=== PATIENT | male | born 1950 | race Caucasian/White ===

== ENCOUNTER 2017-04-05 10:47 | Inpatient (IN) | payer OTHER, MEDICARE ==
[~2017-04-05] VITALS: Ht 177.8 cm; Wt 88.1 kg
[2017-04-05] VITALS (11 sets, daily range): BP systolic 135–213; BP diastolic 63–101; PULSE 69–126; RESP 18–24; TEMP 96.3–101.6; O2SAT 90–99
[~2017-04-05 10:47] MED LIST: ALBU8I INH; CLON.1 PO; COLA100C PO; DILT180C56 PO; FOLI1 PO; GLUCTAB PO; GLYB5TAB3 PO; HYDR-3580 PO; IPRA17I INH; LEVEMIR SQ; MEDR4PAK3 PO; NOVOLOGP2 SQ; NOVOLOGSS SQ; OXYC-360 PO; PREG300 PO; RIVA10 PO; THIA100T PO; XANA0.5T PO; Z.0.WALKERPLAT
--- NOTE | 2017-04-05 11:03 | PD ---
HPI . cough for long time and generalized weakness Chief Complaint: Fever Time Seen by Provider: 11:01 Travel History International Travel<30 days: No Contact w/Intl Traveler<30days: No Traveled to known affect area: No History of Present Illness HPI 66-year-old male who is a very poor historian with history of COPD and diabetes here with complaints of coughing intermittently for the past several weeks, possibly months and generalized weakness. Apparently patient lives at home with his , who is having a difficult time taking care of him. He sustained a hip fracture several months ago was in rehabilitation for a short period of time, and then released home. Apparently he was brought in today due to generalized weakness, frequent coughing and temperature elevation of 101.4. He tells me he is a patient of the [facility], but does not know the name of his medical doctor. He also does not recall any of the names of the medications that he takes daily. Unfortunately his is not present to provide any of that information. PFSH Past Medical History Arthritis: Yes Asthma: Yes Autoimmune Disease: No Blood Disorders: No Anxiety: Yes Depression: No Heart Rhythm Problems: No Cancer: No Cardiovascular Problems: Yes High Cholesterol: No Chest Pain: No Congestive Heart Failure: No Cirrhosis: Yes COPD: Yes Cerebrovascular Accident: No Diabetes: Yes Diminished Hearing: No Endocrine: Yes Gastrointestinal Disorders: Yes GERD: No Glaucoma: No Genitourinary: Yes Headaches: No Hepatitis: No Hiatal Hernia: No Hypertension: Yes Immune Disorder: No Kidney Stones: Yes Musculoskeletal: Yes Neurologic: Yes (NEUROPATHY) Psychiatric: No Reproductive: No Respiratory: Yes (COPD) Migraines: No Myocardial Infarction: No Pancreatitis: Yes Renal Failure: No Seizures: No Sickle Cell Disease: No Sleep Apnea: No Thyroid Disease: No Ulcer: No Past Surgical History Abdominal Surgery: Yes (GALL BLADDER) AICD: No Appendectomy: No Arteriovenous Shunt: No Cardiac Surgery: No Cholecystectomy: Yes Ear Surgery: No Endocrine Surgery: No Eye Surgery: No Genitourinary Surgery: Yes Gynecologic Surgery: No Insulin Pump: No Joint Replacement: No Oral Surgery: No Thoracic Surgery: No Other Surgery: Yes (CYST REMOVED FROM HEAD AND NECK) Social History Alcohol Use: Yes (BEER DAILY "UP TO 8") Tobacco Use: Yes (2 PPD) Substance Use: No Allergies-Medications (Allergen,Severity, Reaction): Coded Allergies: Codeine (Verified Allergy, Severe, SEVERE GI UPSET, 04/05/17) Reported Meds & Prescriptions Reported Meds & Active Scripts Active Reported Gabapentin 800 Mg Tab 800 Mg PO QID Amitriptyline (Amitriptyline HCl) 10 Mg Tab 10 Mg PO HS Lortab (Hydrocodone-Acetaminophen) 7.5-325 Mg Tab 1 Tab PO TID PRN Glipizide-Metformin 5-500 Mg Tab 1 Tab PO DAILY WITH LUNCH Lyrica (Pregabalin) 75 Mg Cap 75 Mg PO BID Review of Systems General / Constitutional: Positive: Fever Eyes: No: Visual changes HENT: No: Headaches Cardiovascular: No: Chest Pain or Discomfort Respiratory: Positive: Cough, No: Shortness of Breath Gastrointestinal: No: Abdominal Pain Genitourinary: No: Dysuria Musculoskeletal: No: Pain Skin: No Rash Neurologic: Positive: Weakness Psychiatric: No: Depression Endocrine: No: Polydipsia Hematologic/Lymphatic: No: Easy Bruising Physical Exam Narrative GENERAL: Disheveled appearance SKIN: Warm and dry. No visible rashes or bruising. Nailbeds extremely dirty with what appears to be feces HEAD: Normocephalic and atraumatic. EYES: No scleral icterus. No injection or drainage. ENT: No nasal drainage noted. Mucous membranes pink. Airway patent. NECK: Supple, trachea midline. No JVD. CARDIOVASCULAR: tachycardic on examination, 122 RESPIRATORY: breath sounds diminished bilaterally, rhonchi scattered throughout , GASTROINTESTINAL: Abdomen soft, non-tender, nondistended. no rebound or guarding EXTREMITIES: No cyanosis, mild pedal edema, posterior tibial pulses normal BACK: No obvious deformity. NEURO: CN II-12 intact, funeral director/embalmer/owner strength normal b/l, UE and LE 5/5, no focal deficits PSYCH: AAO x 3, normal affect. Data Data Last Documented VS Vital Signs Date Time Temp Pulse Resp B/P Pulse Ox O2 Delivery O2 Flow Rate FiO2 04/05/17 14:23 98.8 85 18 149/68 90 Room Air 04/05/17 12:12 2 04/05/17 11:20 21 Orders Electrocardiogram (04/05/17 ) Complete Blood Count With Diff (04/05/17 11:09) Comprehensive Metabolic Panel (04/05/17 11:09) Prothrombin Time / Inr (Pt) (04/05/17 11:09) Act Partial Throm Time (Ptt) (04/05/17 11:09) Lactic Acid Sepsis Protocol (04/05/17 11:09) Urinalysis - C+S If Indicated (04/05/17 11:09) Blood Culture (04/05/17 11:09) Chest, Single Ap (04/05/17 11:09) Blood Glucose (04/05/17 11:09) Ecg Monitoring (04/05/17 11:09) Iv Access Insert/Monitor (04/05/17 11:09) Oximetry (04/05/17 11:09) Oxygen Administration (04/05/17 11:09) Albuterol-Ipratropium Neb (Duoneb Neb) (04/05/17 11:15) Acetaminophen (Tylenol) (04/05/17 12:30) Sodium Chlor 0.9% 1000 Ml Inj (Ns 1000 M (04/05/17 13:30) ^ Straight Catheter (04/05/17 13:28) Influenzae A/B Antigen (04/05/17 13:29) Alcohol Withdrawal Asmt-Ciwa ONCE (04/05/17 13:32) Flumazenil Inj (Romazicon Inj) (04/05/17 13:45) Lorazepam (Ativan) (04/05/17 13:45) Lorazepam Inj (Ativan Inj) (04/05/17 13:45) Lorazepam (Ativan) (04/05/17 13:45) Lorazepam Inj (Ativan Inj) (04/05/17 13:45) Lorazepam Inj (Ativan Inj) (04/05/17 13:45) Lorazepam Inj (Ativan Inj) (04/05/17 13:45) Alcohol (Ethanol) (04/05/17 13:55) Urine Culture (04/05/17 13:45) Ceftriaxone Inj (Rocephin Inj) (04/05/17 14:30) Sodium Chlor 0.9% 1000 Ml Inj (Ns 1000 M (04/05/17 14:30) Labs Laboratory Tests Test 04/05/17 04/05/17 04/05/17 04/05/17 11:09 11:15 13:40 13:45 White Blood Count 8.8 TH/MM3 Red Blood Count 4.00 MIL/MM3 Hemoglobin 12.9 GM/DL Hematocrit 37.6 % Mean Corpuscular Volume 94.0 FL Mean Corpuscular Hemoglobin 32.3 PG Mean Corpuscular Hemoglobin 34.4 % Concent Red Cell Distribution Width 13.6 % Platelet Count 229 TH/MM3 Mean Platelet Volume 8.0 FL Neutrophils (%) (Auto) 81.5 % Lymphocytes (%) (Auto) 8.7 % Monocytes (%) (Auto) 9.1 % Eosinophils (%) (Auto) 0.1 % Basophils (%) (Auto) 0.6 % Neutrophils # (Auto) 7.2 TH/MM3 Lymphocytes # (Auto) 0.8 TH/MM3 Monocytes # (Auto) 0.8 TH/MM3 Eosinophils # (Auto) 0.0 TH/MM3 Basophils # (Auto) 0.1 TH/MM3 CBC Comment DIFF FINAL Differential Comment Prothrombin Time 10.7 SEC Prothromb Time International 1.0 RATIO Ratio Activated Partial 25.0 SEC Thromboplast Time Sodium Level 133 MEQ/L Potassium Level 4.8 MEQ/L Chloride Level 97 MEQ/L Carbon Dioxide Level 23.7 MEQ/L Anion Gap 12 MEQ/L Blood Urea Nitrogen 12 MG/DL Creatinine 1.09 MG/DL Estimat Glomerular Filtration 67 ML/MIN Rate Random Glucose 213 MG/DL Calcium Level 9.0 MG/DL Total Bilirubin 0.8 MG/DL Aspartate Amino Transf 40 U/L (AST/SGOT) Alanine Aminotransferase 17 U/L (ALT/SGPT) Alkaline Phosphatase 86 U/L Total Protein 7.9 GM/DL Albumin 2.5 GM/DL Lactic Acid Level 3.5 mmol/L 2.1 mmol/L Ethyl Alcohol Level LESS THAN 3 MG/DL Urine Color YELLOW Urine Turbidity CLOUDY Urine pH 6.0 Urine Specific [place] 1.018 Urine Protein 300 mg/dL Urine Glucose (UA) 300 mg/dL Urine Ketones 10 mg/dL Urine Occult Blood MOD Urine Nitrite NEG Urine Bilirubin NEG Urine Urobilinogen LESS THAN 2.0 MG/DL Urine Leukocyte Esterase LARGE Urine RBC 20 /hpf Urine WBC 142 /hpf Urine Amorphous Sediment OCC Urine Bacteria MANY /hpf Microscopic Urinalysis Comment CATH-CULTURE IND MDM Medical Decision Making Medical Screen Exam Complete: Yes Emergency Medical Condition: Yes Medical Record Reviewed: Yes Differential Diagnosis pneumonia, copd exacerabation, UTI, sepsis Narrative Course 66 yr old male here with generalized weakness, coughing and fever. Patient appears to have an acute infection possible Pneumonia. He may also have sepsis as he is febrile and tachycardic. IV access obtained. Patient placed on continuous cardiac monitoring, as well as O2 monitoring. He required 2L O2 via NC as he was satting at 90% on RA. Labs, cxr, EKG ordered. EKG reviewed by Dr. Hartmann. Duoneb provided. Patient given Tylenol for fever. Laboratory Tests Test 04/05/17 04/05/17 11:09 11:15 White Blood Count 8.8 TH/MM3 Red Blood Count 4.00 MIL/MM3 Hemoglobin 12.9 GM/DL Hematocrit 37.6 % Mean Corpuscular Volume 94.0 FL Mean Corpuscular Hemoglobin 32.3 PG Mean Corpuscular Hemoglobin 34.4 % Concent Red Cell Distribution Width 13.6 % Platelet Count 229 TH/MM3 Mean Platelet Volume 8.0 FL Neutrophils (%) (Auto) 81.5 % Lymphocytes (%) (Auto) 8.7 % Monocytes (%) (Auto) 9.1 % Eosinophils (%) (Auto) 0.1 % Basophils (%) (Auto) 0.6 % Neutrophils # (Auto) 7.2 TH/MM3 Lymphocytes # (Auto) 0.8 TH/MM3 Monocytes # (Auto) 0.8 TH/MM3 Eosinophils # (Auto) 0.0 TH/MM3 Basophils # (Auto) 0.1 TH/MM3 CBC Comment DIFF FINAL Differential Comment Prothrombin Time 10.7 SEC Prothromb Time International 1.0 RATIO Ratio Activated Partial 25.0 SEC Thromboplast Time Sodium Level 133 MEQ/L Potassium Level 4.8 MEQ/L Chloride Level 97 MEQ/L Carbon Dioxide Level 23.7 MEQ/L Anion Gap 12 MEQ/L Blood Urea Nitrogen 12 MG/DL Creatinine 1.09 MG/DL Estimat Glomerular Filtration 67 ML/MIN Rate Random Glucose 213 MG/DL Calcium Level 9.0 MG/DL Total Bilirubin 0.8 MG/DL Aspartate Amino Transf 40 U/L (AST/SGOT) Alanine Aminotransferase 17 U/L (ALT/SGPT) Alkaline Phosphatase 86 U/L Total Protein 7.9 GM/DL Albumin 2.5 GM/DL Lactic Acid Level 3.5 mmol/L Lactic acid: hemolysis: recollect requested 1331: Sample was sufficient: waiting on urine. Influenza requested. Patient supposedly drinks a moderate amount of ETOH. I will place him on CIWA precautions. Alcohol level checked. Discussed with Dr. Hartmann, we will hold off on antibiotics until urine is back. Laboratory Tests Test 04/05/17 04/05/17 04/05/17 04/05/17 11:09 11:15 13:40 13:45 Red Blood Count 4.00 MIL/MM3 (4.50-5.90) Hemoglobin 12.9 GM/DL (13.0-17.0) Hematocrit 37.6 % (39.0-51.0) Neutrophils (%) (Auto) 81.5 % (16.0-70.0) Lymphocytes (%) (Auto) 8.7 % (9.0-44.0) Monocytes (%) (Auto) 9.1 % (0.0-8.0) Lymphocytes # (Auto) 0.8 TH/MM3 (1.0-4.8) Sodium Level 133 MEQ/L (136-145) Chloride Level 97 MEQ/L (98-107) Estimat Glomerular Filtration 67 ML/MIN (>89) Rate Random Glucose 213 MG/DL (74-106) Aspartate Amino Transf 40 U/L (15-37) (AST/SGOT) Albumin 2.5 GM/DL (3.4-5.0) Lactic Acid Level 3.5 mmol/L 2.1 mmol/L (0.4-2.0) (0.4-2.0) Urine Turbidity CLOUDY (CLEAR) Urine Protein 300 mg/dL (NEG-TRACE) Urine Glucose (UA) 300 mg/dL (NEG) Urine Ketones 10 mg/dL (NEG) Urine Occult Blood MOD (NEG) Urine Leukocyte Esterase LARGE (NEG) Urine RBC 20 /hpf (0-3) Urine WBC 142 /hpf (0-5) Urine Bacteria MANY /hpf (NONE) Patient appears to have UTI/possible urosepsis. Case has been discussed with Dr. Hartmann. Kana here in ED. Additional IV fluids provided. 1423: Call back requested from [facility] for admission. I have discussed admission with the patient. He is in agreement with the recommendations. He is requesting that I discussed this with his , who is not present here in the emergency department. 1427: Spoke with Maddie personally. She verbalized understanding of his condition. She was in the process of getting ready to come to the ED as she accidentally went to [facility] thinking he was there. 1445: Discussed with Dr. Burks. She will resume patient's care. Diagnosis Primary Impression: UTI (urinary tract infection) Qualified Code: N30.00 - Acute cystitis without hematuria Additional Impression: Sepsis Qualified Code: A41.9 - Sepsis, due to unspecified organism Admitting Information Admitting Physician Requests: Admit Condition: Stable Maria Eugenia Khalil Apr 05, 2017 11:02
[2017-04-05] MEDS: RESP: ALBUTEROL 2.5 MG/IPRATROPIUM 0.5 MG NEB (SCH) INH ×2 (11:20→11:30)
[2017-04-05] MEDS ORDERED: AMIT10TA6 PO (11:29)
[2017-04-05] MEDS ORDERED: LYRI75CA PO (11:29)
[2017-04-05] MEDS ORDERED: GABA800T PO (11:29)
[2017-04-05] MEDS ORDERED: GLIP5TAB PO (11:29)
[2017-04-05] MEDS ORDERED: HYDR-3534 PO (11:29)
[2017-04-05 11:32] LABS: AUTOMATED NEUTROPHIL # 7.2 TH/MM3 (1.8-7.7); BASOPHIL # 0.1 TH/MM3 (0-0.2); BASOPHIL % 0.6 % (0.0-2.0); EOSINOPHIL % 0.1 % (0.0-4.0); HEMATOCRIT 37.6 % (39.0-51.0); HEMO FLAGS DIFF FINAL; LYMPH % 8.7 % (9.0-44.0); LYMPHOCYTE # 0.8 TH/MM3 (1.0-4.8); MEAN CORPUSCULAR HEMOGLOBIN 32.3 PG (27.0-34.0); MEAN CORPUSCULAR HGB CONC 34.4 % (32.0-36.0); MONO % 9.1 % (0.0-8.0); NEUT % 81.5 % (16.0-70.0); PLATELET COUNT 229 TH/MM3 (150-450); RED CELL DISTRIBUTION WIDTH 13.6 % (11.6-17.2); WHITE BLOOD COUNT 8.8 TH/MM3 (4.0-11.0)
[2017-04-05 11:40] LABS: PROTHROMBIN TIME - PATIENT 10.7 SEC (9.8-11.6)
[2017-04-05 11:50] LABS: ALKALINE PHOSPHATASE 86 U/L (45-117); TOTAL BILIRUBIN ADULT 0.8 MG/DL (0.2-1.0)
[2017-04-05 11:51] LABS: ALT (GPT) 17 U/L (12-78); ANION GAP 12 MEQ/L (5-15); AST (GOT) 40 U/L (15-37); BICARBONATE 23.7 MEQ/L (21.0-32.0); BLOOD UREA NITROGEN 12 MG/DL (7-18); CHLORIDE 97 MEQ/L (98-107); GLOMERULAR FILTRATION RATE 67 ML/MIN (>89); SODIUM (NA) 133 MEQ/L (136-145)
[2017-04-05 12:04] LABS: POTASSIUM 4.8 MEQ/L (3.5-5.1)
--- NOTE | 2017-04-05 12:24 | RADRPT ---
EXAM DATE/TIME: 04/05/2017 11:17 [facility] COMPARISON: CHEST SINGLE AP, May 03, 2016, 23:56. INDICATIONS : Cough. MEDICAL HISTORY : Hypertension. Chronic obstructive pulmonary disease. Diabetes mellitus type II. SURGICAL HISTORY : Coronary artery stent. ENCOUNTER: Initial ACUITY: 1 day PAIN SCORE: 0/10 LOCATION: Bilateral chest FINDINGS: A single view of the chest demonstrates the lungs to be symmetrically aerated without evidence of mas s, infiltrate or effusion. The cardiomediastinal contours are unremarkable. Osseous structures are intact. CONCLUSION: No acute disease. Tahir Bautista MD on April 05, 2017 at 12:23 Board Certified Radiologist. This report was verified electronically.
[2017-04-05] MEDS ORDERED: ACETAMINOPHEN 325 MG TAB PO ONE (12:30)
[2017-04-05 13:21] LABS: LACTIC ACID GHOST NOT REPORTABLE
[2017-04-05] MEDS ORDERED: SODIUM CHLOR 0.9% 1000 ML INJ 1,000 ML IV ONE ×2 (13:30→14:30)
[2017-04-05] MEDS ORDERED: FLUMAZENIL 0.5 MG/5 ML VIAL IV PUSH PRN (13:45)
[2017-04-05] MEDS ORDERED: LORazepam 2 MG/ML VIAL IV PUSH PRN ×4 (13:45)
[2017-04-05] MEDS: LORazepam 1 MG TAB PO PRN ×2 (14:02→21:09)
[2017-04-05 14:08] LABS: BACTERIA, URINE MANY /hpf; BLOOD, URINE MOD (NEG); GLUCOSE,URINE 300 mg/dL (NEG); KETONE, URINE 10 mg/dL (NEG); NITRITE,URINE NEG (NEG); URINE COLOR YELLOW (YELLW/STRAW)
[2017-04-05 14:09] LABS: COMMENT (UR) CATH-CULTURE IND; CULTURE IF INDICATED CATH CULTURE IND
[2017-04-05] MEDS ORDERED: cefTRIAXone INJ 1,000 MG in SODIUM CHLORIDE 0.9% INJ 100 ML IV ONE (14:30)
--- NOTE | 2017-04-05 15:09 | HHI.HP ---
[facility] Service [facility] Primary Care Physician Unknown Admission Diagnosis UTI Diagnoses: Chief Complaint: Mechanical fall 2 due to lower extremity weakness Travel History International Travel<30 Days: No Contact w/Intl Traveler <30 Da: No Traveled to Known Affected Are: No History of Present Illness 66-year-old male with recurrent alcoholism, tobacco dependence, history COPD, history of hypertension, type 2 diabetes with peripheral neuropathy, history of left hip fracture status post hip pinning/year who presented with 2 falls. Patient stated that at baseline he transports himself on a wheelchair and he stated that his bathroom door is too small to fit the wheelchair so he gets out of the wheelchair to use the restroom. He stated the last 2 days he had 2 falls so he went to the emergency department. Patient stated that he fell because of lower extremity weakness. Of note he is a poor historian. During his last admission in April 2016 his providers also stated that patient is a poor historian. He stated that lower extremity weakness started in April when he had the hip fracture. He stated because of the hip fracture his right leg was always weak. But since he hasn't been using his left leg his left leg also became weak. Patient stated that he last had a drink last night. Denies any alcohol use today. Deny any fecal or urinary incontinence. In the emergency department labs imaging was obtained. He was found to have a urinary tract infection. Patient then stated that yet he has been urinating more often. Deny any dysuria or nocturia. Denies abdominal pain or fevers or chills. Patient was found to have a fever of 101.4. All other reviews of systems reviewed and were negative except positive for lower extremity neuropathy. Past Family Social History Past Medical History OPD Diabetes mellitus type 2 Hypertension Kidney stone Pancreatitis Past Surgical History left hip pinning 04/2016 neck cyst removal Cholecystectomy Reported Medications Gabapentin 800 Mg Tab 800 Mg PO QID Amitriptyline (Amitriptyline HCl) 10 Mg Tab 10 Mg PO HS Lortab (Hydrocodone-Acetaminophen) 7.5-325 Mg Tab 1 Tab PO TID PRN Glipizide-Metformin 5-500 Mg Tab 1 Tab PO DAILY WITH LUNCH Lyrica (Pregabalin) 75 Mg Cap 75 Mg PO BID Allergies: Coded Allergies: Codeine (Verified Allergy, Severe, SEVERE GI UPSET, 04/05/17) Active Ordered Medications Current Medications Albuterol/ Ipratropium (Duoneb Neb) 1 ampule Q15M INH Last administered on 11:30; Start 04/05/17 at 11:15; Stop 04/05/17 at 11:31; Status DC Acetaminophen 650 mg 650 mg ONCE ONCE PO Last administered on 04/05/17 12:32; Start 04/05/17 at 12:30; Stop 04/05/17 at 12:31; Status DC Sodium Chloride (NS 1000 ml Inj) 1,000 ml @ 999 mls/hr BOLUS ONCE IV Last administered on 04/05/17 13:30; Start 04/05/17 at 13:30; Stop 04/05/17 at 14:30; Status DC Flumazenil (Romazicon Inj) 0.2 mg Q1M PRN IV PUSH SEE LABEL COMMENTS; Start 04/05/17 at 13:45 Lorazepam (Ativan) 1 mg Q4H PRN PO CIWA 8 - 10 Last administered on 04/05/17 14 :02; Start 04/05/17 at 13:45 Lorazepam (Ativan Inj) 1 mg Q4H PRN IV PUSH CIWA 8 - 10; Start 04/05/17 at 13:45 Lorazepam (Ativan) 2 mg Q2H PRN PO CIWA 11-14; Start 04/05/17 at 13:45 Lorazepam (Ativan Inj) 2 mg Q2H PRN IV PUSH CIWA 11-14; Start 04/05/17 at 13:45 Lorazepam (Ativan Inj) 2 mg Q1H PRN IV PUSH CIWA 15-20; Start 04/05/17 at 13:45 Lorazepam 2 mg 2 mg Q15M PRN IV PUSH CIWA > 20; Start 04/05/17 at 13:45 Ceftriaxone Sodium 1000 mg/ Sodium Chloride 100 ml @ 200 mls/hr ONCE ONCE IV Last administered on 04/05/17 14:32; Start 04/05/17 at 14:30; Stop 04/05/17 at 14: 59; Status DC Sodium Chloride 1,000 ml @ 999 mls/hr BOLUS ONCE IV Last administered on t 14:26; Start 04/05/17 at 14:30; Stop 04/05/17 at 15:30 Sodium Chloride (1/2 NS 1000 ml Inj) 1,000 ml @ 75 mls/hr [id number] IV ; Start at 15:04; Status UNV Sodium Chloride (NS Flush) 2 ml UNSCH PRN IV FLUSH FLUSH AFTER USING IV ACCESS ; Start 04/05/17 at 15:15; Status UNV Sodium Chloride (NS Flush) 2 ml BID IV FLUSH ; Start 04/05/17 at 21:00; Status UNV Acetaminophen (Tylenol) 650 mg Q4H PRN PO TEMP > 100.4; Start 04/05/17 at 15:15 ; Status UNV Ondansetron HCl (Zofran Inj) 4 mg Q6H PRN IVP NAUSEA OR VOMITING; Start at 15:15; Status UNV Naloxone HCl (Narcan Inj) 0.4 mg UNSCH PRN IV SEE LABEL COMMENTS; Start at 15:15; Status UNV Senna/Docusate Sodium (Nikki-Colace) 1 tab BID PO ; Start 04/05/17 at 21:00; Status UNV Magnesium Hydroxide (Milk Of Magnesia Liq) 30 ml Q12H PRN PO MILD - MODERATE CONSTIPATION; Start 04/05/17 at 15:15; Status UNV Sennosides (Senokot) 17.2 mg Q12H PRN PO MODERATE - SEVERE CONSTIPATION; Start 04/05/17 at 15:15; Status UNV Bisacodyl (Dulcolax Supp) 10 mg DAILY PRN RECTAL SEVERE CONSITIPATION; Start at 15:15; Status UNV Lactulose (Lactulose Liq) 30 ml DAILY PRN PO SEVERE CONSITIPATION; Start at 15:15; Status UNV Family History Mother had [place] and diabetes type 2. Social History Patient drinks 4 packs of beer a day. He denied withdrawing from any alcohol. Smokes one pack per day for 40+ years. Denies any illicit drug use. Patient lives in a small apartment with his ex- and son. Physical Exam Vital Signs Vital Signs Date Time Temp Pulse Resp B/P Pulse Ox O2 Delivery O2 Flow Rate FiO2 04/05/17 14:23 98.8 85 18 149/68 90 Room Air 04/05/17 12:12 108 18 157/68 95 Nasal Cannula 2 04/05/17 12:11 95 Nasal Cannula 2 04/05/17 11:30 93 Nasal Cannula 2.00 04/05/17 11:20 21 04/05/17 11:04 117 18 95 Nasal Cannula 2 04/05/17 10:52 101.4 124 20 191/90 Physical Exam GENERAL: This is a unkempt male in no acute distress. SKIN: No rashes, ecchymoses or lesions. Cool and dry. But is cover with some dirt spots. HEAD: Atraumatic. Normocephalic. No temporal or scalp tenderness. EYES: Pupils equal round and reactive. Extraocular motions intact. No scleral icterus. No injection or drainage. ENT: Nose without bleeding, purulent drainage or septal hematoma. Throat without erythema, tonsillar hypertrophy or exudate. Uvula midline. Airway patent. NECK: Trachea midline. No JVD or lymphadenopathy. Supple, nontender, no meningeal signs. CARDIOVASCULAR: Regular rate and rhythm without murmurs, gallops, or rubs. RESPIRATORY: Clear to auscultation. Breath sounds equal bilaterally. No wheezes , rales, or rhonchi. GASTROINTESTINAL: Abdomen soft, non-tender, nondistended. No hepato-splenomegaly , or palpable masses. No guarding. MUSCULOSKELETAL: Extremities without clubbing, cyanosis, or edema. No joint tenderness, effusion, or edema noted. No calf tenderness. Negative Homans sign bilaterally. NEUROLOGICAL: Awake and alert, but slow to respond back but does respond appropriately. Positive for resting bilateral hand tremors. Cranial nerves II through XII intact. Motor and sensory grossly within normal limits. Five out of 5 muscle strength in all muscle groups. Normal speech. Laboratory Laboratory Tests Test 04/05/17 04/05/17 04/05/17 04/05/17 11:09 11:15 13:40 13:45 White Blood Count 8.8 Red Blood Count 4.00 Hemoglobin 12.9 Hematocrit 37.6 Mean Corpuscular Volume 94.0 Mean Corpuscular Hemoglobin 32.3 Mean Corpuscular Hemoglobin 34.4 Concent Red Cell Distribution Width 13.6 Platelet Count 229 Mean Platelet Volume 8.0 Neutrophils (%) (Auto) 81.5 Lymphocytes (%) (Auto) 8.7 Monocytes (%) (Auto) 9.1 Eosinophils (%) (Auto) 0.1 Basophils (%) (Auto) 0.6 Neutrophils # (Auto) 7.2 Lymphocytes # (Auto) 0.8 Monocytes # (Auto) 0.8 Eosinophils # (Auto) 0.0 Basophils # (Auto) 0.1 CBC Comment DIFF FINAL Differential Comment Prothrombin Time 10.7 Prothromb Time International 1.0 Ratio Activated Partial 25.0 Thromboplast Time Sodium Level 133 Potassium Level 4.8 Chloride Level 97 Carbon Dioxide Level 23.7 Anion Gap 12 Blood Urea Nitrogen 12 Creatinine 1.09 Estimat Glomerular Filtration 67 Rate Random Glucose 213 Calcium Level 9.0 Total Bilirubin 0.8 Aspartate Amino Transf 40 (AST/SGOT) Alanine Aminotransferase 17 (ALT/SGPT) Alkaline Phosphatase 86 Total Protein 7.9 Albumin 2.5 Lactic Acid Level 3.5 2.1 Ethyl Alcohol Level LESS THAN 3 Urine Color YELLOW Urine Turbidity CLOUDY Urine pH 6.0 Urine Specific [place] 1.018 Urine Protein 300 Urine Glucose (UA) 300 Urine Ketones 10 Urine Occult Blood MOD Urine Nitrite NEG Urine Bilirubin NEG Urine Urobilinogen LESS THAN 2.0 Urine Leukocyte Esterase LARGE Urine RBC 20 Urine WBC 142 Urine Amorphous Sediment OCC Urine Bacteria MANY Microscopic Urinalysis Comment CATH-CULTURE IND Date/Time Procedure Status Source Growth 04/05/17 14:00 Influenza Types A,B Antigen (ELVIN) - Final Complete Nasal Washing NEGATIVE FOR FLU A AND B ANTIGEN.... 04/05/17 13:45 Urine Culture Received Urine Catheterized Urine Pending 04/05/17 11:15 Aerobic Blood Culture Received Blood Peripheral Pending 04/05/17 11:15 Anaerobic Blood Culture Received Blood Peripheral Pending Result Diagram: 04/05/17 1109 04/05/17 1109 Imaging Last Impressions Chest X-Ray 04/05/17 1109 Signed Impressions: Service Date/Time: Wednesday, April 05, 2017 11:17 - CONCLUSION: No acute disease. Tahir Bautista MD Assessment and Plan Assessment and Plan 66-year-old male poor historian and has a history of alcoholism, type 2 diabetes , peripheral neuropathy, history of hypertension, history of left hip fracture who presented with multiple falls past 2 days. Mechanical falls -From the interview this seems like a chronic problem. On physical exam his lower extremities seems to be intact. -Will have physical therapist evaluate this. At baseline patient is mostly transports himself in a wheelchair UTI with questionable sepsis -Found on UA. Patient is symptomatic he has polyuria. Patient does have fevers but I am not sure if I consider his tachycardia initially to meet sepsis criteria. His tachycardia resolved quickly. The more due to pain/agitation. After view relatively are normal. She has mildly elevated lactic acid. -Will start patient on Zosyn pending urine cultures. -Will give IV fluids. -Pending blood cultures. Fevers -Most likely secondary to UTI. See above. Type 2 diabetes with peripheral neuropathy -On last admission patient was not on both gabapentin and Lyrica. Will continue with Lyrica and have patient's nurse confirmed gabapentin with his pharmacist. -Will hold glyburide and metformin and start patient on insulin sliding scale. Patient also be hypoglycemic protocol. Alcoholism -He does have some tremors. Patient does not know these tremors are new. -Will start him on CIWA protocol. -Patient was counseled. History of Hypertension -This was seen on his prior admission. Currently he is not on any antihypertensive medication. We'll continue to monitor and adjust accordingly. History of left hip fracture status post left hip pinning/chronic hip pain -Continue with his home pain medication. -PT consulted. Tobacco dependence -Patient counseled. Smoking cessation. -Patient does want a nicotine patch while hospitalized. Will place order. DVT prophylaxis -SCD/teds Discussed Condition With patient Physician Certification 2 Midnight Certification Type: Admission for Inpatient Services Order for Inpatient Services The services are ordered in accordance with Medicare regulations or non- Medicare payer requirements, as applicable. In the case of services not specified as inpatient-only, they are appropriately provided as inpatient services in accordance with the 2-midnight benchmark. Estimated LOS (days): 3 3 days is the estimated time the patient will need to remain in the hospital, assuming treatment plan goals are met and no additional complications. Post-Hospital Plan: Tuyet Sommer MD Apr 05, 2017 15:08
[2017-04-05] MEDS ORDERED: ONDANSETRON HCL 4 MG/2 ML VIAL IVP PRN (15:15)
[2017-04-05] MEDS ORDERED: LACTULOSE SYRUP 20 GM/30 ML CUP PO PRN (15:15)
[2017-04-05] MEDS ORDERED: ACETAMINOPHEN 325 MG TAB PO PRN (15:15)
[2017-04-05] MEDS ORDERED: ACETAMINOPHEN/HYDROcodone 325 MG/7.5 MG TAB PO PRN (15:15)
[2017-04-05] MEDS ORDERED: GLUCAGON 1 MG/ML VIAL OTHER PRN (15:15)
[2017-04-05] MEDS ORDERED: MAGNESIUM HYDROXIDE SUSP 30 ML CUP PO PRN (15:15)
[2017-04-05] MEDS ORDERED: BISACODYL 10 MG SUPP RECTAL PRN (15:15)
[2017-04-05] MEDS ORDERED: SODIUM CHLORIDE 0.9% FLUSH 10 ML FLUSH IV FLUSH PRN (15:15)
[2017-04-05] MEDS ORDERED: DEXTROSE 50% IN WATER 50 ML VIAL(D50) IV PRN (15:15)
[2017-04-05] MEDS ORDERED: NALOXONE HCL 0.4 MG/ML AMP IV PRN (15:15)
[2017-04-05] MEDS ORDERED: SENNOSIDES 8.6 MG TAB PO PRN (15:15)
[2017-04-05] MEDS: SODIUM CHLOR 0.45% 1000 ML INJ 1,000 ML IV SCH (17:00)
[2017-04-05] MEDS: NICOTINE 21 MG/24 HR PATCH T-DERMAL SCH (17:01)
[2017-04-05] MEDS: PIPERACIL-TAZO 3.375 GM PREMIX 50 ML IV SCH ×2 (17:04→23:26)
[2017-04-05] MEDS: REMOVE OLD PATCH T-DERMAL SCH (20:59)
[2017-04-05] MEDS: SODIUM CHLORIDE 0.9% FLUSH 10 ML FLUSH IV FLUSH SCH (21:00)
[2017-04-05] MEDS: DOCUSATE SODIUM 50 MG/SENNA 8.6 MG TAB PO SCH (21:05)
[2017-04-05] MEDS: PREGABALIN 75 MG CAP PO SCH (21:05)
[2017-04-05] MEDS: AMITRIPTYLINE HCL 10 MG TAB PO SCH (21:05)
[2017-04-05] MEDS: INSULIN ASPART SUPPLEMENTAL SCALE SQ SCH (21:08)
[2017-04-05] MEDS ORDERED: LORazepam 2 MG/ML VIAL IV PUSH ONE (22:30)
[2017-04-05] MEDS ORDERED: chlordiazePOXIDE 25 MG CAP PO PRN (23:00)
[2017-04-05] MEDS ORDERED: chlordiazePOXIDE 25 MG CAP PO ONE (23:00)
[2017-04-06] VITALS (9 sets, daily range): BP systolic 145–208; BP diastolic 68–89; PULSE 68–103; RESP 18–21; TEMP 96.5–100.9; O2SAT 96–97
[2017-04-06] MEDS: chlordiazePOXIDE 25 MG CAP PO SCH ×4 (03:42→21:03)
[2017-04-06] MEDS: SODIUM CHLOR 0.45% 1000 ML INJ 1,000 ML IV SCH ×2 (05:47→18:40)
[2017-04-06] MEDS: PIPERACIL-TAZO 3.375 GM PREMIX 50 ML IV SCH ×4 (05:47→22:42)
[2017-04-06] MEDS: INSULIN ASPART SUPPLEMENTAL SCALE SQ SCH ×4 (05:51→21:07)
[2017-04-06] MEDS: LORazepam 2 MG TAB PO PRN ×3 (07:26→16:44)
[2017-04-06] MEDS: DOCUSATE SODIUM 50 MG/SENNA 8.6 MG TAB PO SCH ×2 (07:27→21:03)
[2017-04-06] MEDS: PREGABALIN 75 MG CAP PO SCH ×2 (07:27→21:03)
[2017-04-06] MEDS: NICOTINE 21 MG/24 HR PATCH T-DERMAL SCH (07:28)
--- NOTE | 2017-04-06 08:05 | EKG ---
Date Performed: 04/05/2017 Time Performed: 11:00:25 PTAGE: 66 years EKG: SINUS TACHYCARDIA RIGHT BUNDLE BRANCH BLOCK ABNORMAL ECG PREVIOUS TRACING : 12/04/2015 23.07 DOCTOR: Max Wasserman Interpretating Date/Time 04/06/2017 08:03:54
[2017-04-06] MEDS: SODIUM CHLORIDE 0.9% FLUSH 10 ML FLUSH IV FLUSH SCH ×2 (09:00→21:00)
[2017-04-06 15:07] LABS: AUTOMATED NEUTROPHIL # 2.8 TH/MM3 (1.8-7.7); BASOPHIL % 0.5 % (0.0-2.0); EOSINOPHIL % 0.5 % (0.0-4.0); HEMATOCRIT 32.1 % (39.0-51.0); HEMO FLAGS DIFF FINAL; LYMPH % 15.2 % (9.0-44.0); LYMPHOCYTE # 0.6 TH/MM3 (1.0-4.8); MEAN CELL VOLUME 95.7 FL (80.0-100.0); MEAN CORPUSCULAR HEMOGLOBIN 32.3 PG (27.0-34.0); MEAN CORPUSCULAR HGB CONC 33.7 % (32.0-36.0); MONO % 13.4 % (0.0-8.0); NEUT % 70.4 % (16.0-70.0); PLATELET COUNT 160 TH/MM3 (150-450); RED BLOOD COUNT 3.35 MIL/MM3 (4.50-5.90); RED CELL DISTRIBUTION WIDTH 13.7 % (11.6-17.2)
[2017-04-06 15:24] LABS: BICARBONATE 30.6 MEQ/L (21.0-32.0); POTASSIUM 3.8 MEQ/L (3.5-5.1)
--- NOTE | 2017-04-06 15:37 | HHI.PR ---
Subjective Remarks Follow-up for alcohol withdrawal and UTI Patient had Halicat due to possible DTs. During the interview patient was able to tell me his name, location, date. He was trying to call his because he thought [employer] want him out of the hospital. Patient had no complaints. Denied any chest pain, shortness of breathing, fevers or chills. He did spike a few fevers last night. Objective Vitals Vital Signs Date Time Temp Pulse Resp B/P Pulse Ox O2 Delivery O2 Flow Rate FiO2 04/06/17 12:00 97.5 86 19 162/74 96 04/06/17 08:40 176/77 04/06/17 07:58 96.5 95 21 208/89 96 04/06/17 07:10 78 04/06/17 03:35 99.0 74 18 145/68 96 Manual Cuff/Auscultation 04/06/17 00:07 100.9 103 199/78 04/05/17 23:31 101.6 112 21 190/80 95 Automatic Cuff 04/05/17 22:38 126 20 180/86 99 04/05/17 22:32 125 04/05/17 22:27 126 04/05/17 22:26 97 21 04/05/17 22:26 100.6 105 24 206/101 97 04/05/17 21:08 21 04/05/17 21:05 96.3 69 18 213/100 98 04/05/17 17:53 98.7 72 18 135/63 93 Room Air I/O 04/05/17 04/05/17 04/05/17 04/06/17 04/06/17 04/06/17 07:00 15:00 23:00 07:00 15:00 23:00 Intake Total 400 ml 1470 ml 480 ml Output Total 475 ml Balance 400 ml 1470 ml 5 ml Intake Oral 240 ml 240 ml 480 ml IV Total 160 ml 1230 ml Output Urine Total 475 ml # Voids 2 1 3 # Bowel Movements 0 0 Result Diagram: 04/06/17 1422 04/06/17 142 Objective Remarks GENERAL: This is a unkempt male in no acute distress. CARDIOVASCULAR: Regular rate and rhythm without murmurs, gallops, or rubs. RESPIRATORY: Clear to auscultation. Breath sounds equal bilaterally. No wheezes , rales, or rhonchi. GASTROINTESTINAL: Abdomen soft, non-tender, nondistended. No hepato-splenomegaly , or palpable masses. No guarding. MUSCULOSKELETAL: Extremities without clubbing, cyanosis, or edema. No joint tenderness, effusion, or edema noted. No calf tenderness. Negative Homans sign bilaterally. NEUROLOGICAL: Awake and alert, respond appropriately. Positive for resting bilateral hand tremors. Cranial nerves II through XII intact. Motor and sensory grossly within normal limits. Five out of 5 muscle strength in all muscle groups. Normal speech. Medications and IVs Current Medications Albuterol/ Ipratropium (Duoneb Neb) 1 ampule Q15M INH Last administered on 11:30; Start 04/05/17 at 11:15; Stop 04/05/17 at 11:31; Status DC Acetaminophen 650 mg 650 mg ONCE ONCE PO Last administered on 04/05/17 12:32; Start 04/05/17 at 12:30; Stop 04/05/17 at 12:31; Status DC Sodium Chloride (NS 1000 ml Inj) 1,000 ml @ 999 mls/hr BOLUS ONCE IV Last administered on 04/05/17 13:30; Start 04/05/17 at 13:30; Stop 04/05/17 at 14:30; Status DC Flumazenil (Romazicon Inj) 0.2 mg Q1M PRN IV PUSH SEE LABEL COMMENTS; Start 04/05/17 at 13:45 Lorazepam (Ativan) 1 mg Q4H PRN PO CIWA 8 - 10 Last administered on 04/05/17 21 :09; Start 04/05/17 at 13:45 Lorazepam (Ativan Inj) 1 mg Q4H PRN IV PUSH CIWA 8 - 10; Start 04/05/17 at 13:45 Lorazepam (Ativan) 2 mg Q2H PRN PO CIWA 11-14 Last administered on 04/06/17 12 :15; Start 04/05/17 at 13:45 Lorazepam (Ativan Inj) 2 mg Q2H PRN IV PUSH CIWA 11-14; Start 04/05/17 at 13:45 Lorazepam (Ativan Inj) 2 mg Q1H PRN IV PUSH CIWA 15-20; Start 04/05/17 at 13:45 Lorazepam 2 mg 2 mg Q15M PRN IV PUSH CIWA > 20 Last administered on 04/05/17 22 :41; Start 04/05/17 at 13:45 Ceftriaxone Sodium 1000 mg/ Sodium Chloride 100 ml @ 200 mls/hr ONCE ONCE IV Last administered on 04/05/17 14:32; Start 04/05/17 at 14:30; Stop 04/05/17 at 14: 59; Status DC Sodium Chloride 1,000 ml @ 999 mls/hr BOLUS ONCE IV Last administered on 14:26; Start 04/05/17 at 14:30; Stop 04/05/17 at 15:34; Status DC Sodium Chloride (1/2 NS 1000 ml Inj) 1,000 ml @ 75 mls/hr [id number] IV Last administered on 04/06/17 05:47; Start 04/05/17 at 16:00 Sodium Chloride (NS Flush) 2 ml UNSCH PRN IV FLUSH FLUSH AFTER USING IV ACCESS ; Start 04/05/17 at 15:15 Sodium Chloride (NS Flush) 2 ml BID IV FLUSH ; Start 04/05/17 at 21:00 Acetaminophen (Tylenol) 650 mg Q4H PRN PO TEMP > 100.4 Last administered on 04/05 23:34; Start 04/05/17 at 15:15 Ondansetron HCl (Zofran Inj) 4 mg Q6H PRN IVP NAUSEA OR VOMITING; Start at 15:15 Naloxone HCl (Narcan Inj) 0.4 mg UNSCH PRN IV SEE LABEL COMMENTS; Start at 15:15 Senna/Docusate Sodium (Nikki-Colace) 1 tab BID PO Last administered on 07:27; Start 04/05/17 at 21:00 Magnesium Hydroxide (Milk Of Magnesia Liq) 30 ml Q12H PRN PO MILD - MODERATE CONSTIPATION; Start 04/05/17 at 15:15 Sennosides (Senokot) 17.2 mg Q12H PRN PO MODERATE - SEVERE CONSTIPATION; Start 04/05/17 at 15:15 Bisacodyl (Dulcolax Supp) 10 mg DAILY PRN RECTAL SEVERE CONSITIPATION; Start at 15:15 Lactulose 30 ml 30 ml DAILY PRN PO SEVERE CONSITIPATION; Start 04/05/17 at 15:15 Piperacillin Sod/ Tazobactam Sod (Zosyn 3.375 Gm Premix) 50 ml @ 100 mls/hr Q6H IV Last administered on 04/06/17 12:19; Start 04/05/17 at 17:00 Dextrose (D50w (Vial) Inj) 50 ml UNSCH PRN IV HYPOGLYCEMIA-SEE COMMENTS; Start 04/05/17 at 15:15 Glucagon (Glucagon Inj) 1 mg UNSCH PRN OTHER HYPOGLYCEMIA-SEE COMMENTS; Start 04/05/17 at 15:15 Insulin Aspart (NovoLOG SUPPLEMENTAL SCALE) 1 ACHS SLIDING SCALE SQ Last administered on 04/05/17 21:08; Start 04/05/17 at 16:00 Amitriptyline HCl (Elavil) 10 mg HS PO Last administered on 04/05/17 21:05; Start 04/05/17 at 21:00 Acetaminophen/ Hydrocodone Bitart ([place] 7.5-325 Mg) 1 tab TID PRN PO PAIN Last administered on 04/05/17 17:22; Start 04/05/17 at 15:15 Pregabalin (Lyrica) 75 mg BID PO Last administered on 04/06/17 07:27; Start at 21:00 Nicotine (Habitrol 21 Mg Patch.24 Hr) 1 patch DAILY T-DERMAL Last administered on 04/06/17 07:28; Start 04/05/17 at 16:00 Miscellaneous Information 1 HS T-DERMAL ; Start 04/05/17 at 21:00 Lorazepam (Ativan Inj) 2 mg ONCE ONCE IV PUSH Last administered on 04/05/17 22 :36; Start 04/05/17 at 22:30; Stop 04/05/17 at 22:32; Status DC Chlordiazepoxide (Librium) 50 mg Q6H PRN PO WITHDRAWAL; Start 04/05/17 at 23:00 ; Stop 04/05/17 at 23:00; Status DC Chlordiazepoxide (Librium) 50 mg NOW ONCE PO Last administered on 04/05/17 23: 03; Start 04/05/17 at 23:00; Stop 04/05/17 at 23:01; Status DC Chlordiazepoxide (Librium) 50 mg Q6H PO Last administered on 04/06/17t 07:27; Start 04/06/17 at 03:00 A/P Assessment and Plan 66-year-old male poor historian and has a history of alcoholism, type 2 diabetes , peripheral neuropathy, history of hypertension, history of left hip fracture who presented with multiple falls past 2 days. Mechanical falls -From the interview this seems like a chronic problem. On physical exam his lower extremities seems to be intact. -At baseline patient is mostly transports himself in a wheelchair. -Physical therapist was consulted and patient refused to be evaluated by physical therapist. UTI with questionable sepsis -Found on UA. Patient is symptomatic he has polyuria. Patient does have fever and tachycardia last night but that seemed to be more due to his withdrawal. -Continue with Zosyn pending urine cultures. -Continue IV fluids. Blood cultures so far negative. Type 2 diabetes with peripheral neuropathy -On last admission patient was not on both gabapentin and Lyrica. Will continue with Lyrica and have patient's nurse confirmed gabapentin with his pharmacist. -Will hold glyburide and metformin and start patient on insulin sliding scale. Patient also be hypoglycemic protocol. Alcohol withdrawal possible DTs last night -Patient continues have tremors. He is on the CIWA protocol. Symptoms seem to be improving. Continue with CIWA protocol. -Patient was counseled. -Will start thiamine, folic acid, multivitamin. History of Hypertension -This was seen on his prior admission. Currently he is not on any antihypertensive medication at home. He continues to be hypertensive. -Will start lisinopril. Adjust accordingly. History of left hip fracture status post left hip pinning/chronic hip pain -Continue with his home pain medication. -Refuse PT. Tobacco dependence -Patient counseled. Smoking cessation. -On nicotine patch. DVT prophylaxis -SCD/teds Tuyet Burks MD Apr 06, 2017 15:37
[2017-04-06] MEDS: FOLIC ACID 1 MG TAB PO SCH (17:38)
[2017-04-06] MEDS: LISINOPRIL 10 MG TAB PO SCH (17:38)
[2017-04-06] MEDS: THIAMINE HCL 100 MG TAB PO SCH (17:39)
[2017-04-06] MEDS: MULTIVITAMIN TAB PO SCH (17:39)
[2017-04-06] MEDS: REMOVE OLD PATCH T-DERMAL SCH (21:00)
[2017-04-06] MEDS: AMITRIPTYLINE HCL 10 MG TAB PO SCH (21:03)
[2017-04-07] VITALS (7 sets, daily range): BP systolic 155–187; BP diastolic 68–79; PULSE 60–70; RESP 16–20; TEMP 97–98.8; O2SAT 94–97
[2017-04-07] MEDS: chlordiazePOXIDE 25 MG CAP PO SCH ×4 (03:00→20:56)
[2017-04-07] MEDS: PIPERACIL-TAZO 3.375 GM PREMIX 50 ML IV SCH ×2 (05:16→10:59)
[2017-04-07] MEDS: INSULIN ASPART SUPPLEMENTAL SCALE SQ SCH ×4 (06:19→21:00)
[2017-04-07 07:16] LABS: HEMATOCRIT 31.4 % (39.0-51.0); MEAN CELL VOLUME 94.4 FL (80.0-100.0); MEAN CORPUSCULAR HEMOGLOBIN 32.5 PG (27.0-34.0); MEAN CORPUSCULAR HGB CONC 34.4 % (32.0-36.0); PLATELET COUNT 156 TH/MM3 (150-450); RED BLOOD COUNT 3.33 MIL/MM3 (4.50-5.90); RED CELL DISTRIBUTION WIDTH 13.3 % (11.6-17.2); REVIEW FLAG FINAL; WHITE BLOOD COUNT 4.2 TH/MM3 (4.0-11.0)
[2017-04-07 07:37] LABS: BICARBONATE 28.8 MEQ/L (21.0-32.0); POTASSIUM 3.3 MEQ/L (3.5-5.1)
[2017-04-07] MEDS: THIAMINE HCL 100 MG TAB PO SCH (07:50)
[2017-04-07] MEDS: MULTIVITAMIN TAB PO SCH (07:50)
[2017-04-07] MEDS: PREGABALIN 75 MG CAP PO SCH ×2 (07:51→20:56)
[2017-04-07] MEDS: FOLIC ACID 1 MG TAB PO SCH (07:51)
[2017-04-07] MEDS: DOCUSATE SODIUM 50 MG/SENNA 8.6 MG TAB PO SCH ×2 (07:51→20:56)
[2017-04-07] MEDS: LISINOPRIL 10 MG TAB PO SCH (07:52)
[2017-04-07] MEDS ORDERED: POTASSIUM CHLORIDE 10 MEQ CONTROLLED RELEASE TAB PO ONE (08:00)
[2017-04-07] MEDS ORDERED: cloNIDine HCL 0.1 MG TAB PO PRN (08:15)
[2017-04-07] MEDS ORDERED: ENALAPRILAT 1.25 MG/ML VIAL IV PRN (08:15)
[2017-04-07] MEDS: NICOTINE 21 MG/24 HR PATCH T-DERMAL SCH (09:00)
[2017-04-07] MEDS: SODIUM CHLORIDE 0.9% FLUSH 10 ML FLUSH IV FLUSH SCH ×2 (09:00→20:59)
[2017-04-07] MEDS ORDERED: LISINOPRIL 10 MG TAB PO SCH (09:00)
--- NOTE | 2017-04-07 12:21 | HHI.PR ---
Subjective Remarks F/U UTI. No voiding issues. WC bouns since last year but increased weakness lately with falls x 2. Agrees with rehab. No hallucinations Objective Vitals Vital Signs Date Time Temp Pulse Resp B/P Pulse Ox O2 Delivery O2 Flow Rate FiO2 04/07/17 08:00 98.8 66 20 159/69 94 04/07/17 04:00 97.0 70 18 187/78 95 04/07/17 00:00 98.2 69 18 155/73 96 04/06/17 22:11 68 04/06/17 20:00 99.3 70 19 177/75 96 04/06/17 16:00 99.9 70 21 161/81 97 I/O 04/06/17 04/06/17 04/06/17 04/07/17 04/07/17 04/07/17 07:00 15:00 23:00 07:00 15:00 23:00 Intake Total 1470 ml 480 ml 240 ml 700 ml Output Total 475 ml 200 ml 300 ml Balance 1470 ml 5 ml 40 ml 400 ml Intake Oral 240 ml 480 ml 240 ml 240 ml IV Total 1230 ml 460 ml Output Urine Total 475 ml 200 ml 300 ml Bladder Scan Volume Amount 257 ml # Voids 1 3 2 # Bowel Movements 0 1 0 Result Diagram: 04/07/17 0559 04/07/17 0559 Objective Remarks GENERAL: WD WN in no distress SKIN: Warm and dry. CARDIOVASCULAR: Regular rate and rhythm. RESPIRATORY: No accessory muscle use. Clear to auscultation. Breath sounds equal bilaterally. GASTROINTESTINAL: Abdomen soft, non-tender, nondistended. MUSCULOSKELETAL: Extremities without clubbing, cyanosis, or edema. No obvious deformities. NEUROLOGICAL: Awake and alert. No obvious cranial nerve deficits. Generalized weakness. Normal speech. No tremors Procedures none A/P Problem List: (1) Sepsis ICD Code: A41.9 Status: Acute (2) UTI (urinary tract infection) ICD Code: N39.0 Status: Acute (3) alcoholism Status: Chronic Assessment and Plan 66-year-old male poor historian and has a history of alcoholism, type 2 diabetes , peripheral neuropathy, history of hypertension, history of left hip fracture who presented with multiple falls past 2 days. Mechanical falls -From the interview this seems like a chronic problem. On physical exam his lower extremities seems to be intact. -At baseline patient is mostly transports himself in a wheelchair. -Physical therapist was consulted and patient refused to be evaluated by physical therapist. Pt encouraged to be more compliant UTI with severe sepsis -Ucx with Klebsiella. Blood cultures so far negative. Switch to po Cipro Type 2 diabetes with peripheral neuropathy -On last admission patient was not on both gabapentin and Lyrica. Will continue with Lyrica and have patient's nurse confirmed gabapentin with his pharmacist. -Will hold glyburide and metformin and start patient on insulin sliding scale. Patient also be hypoglycemic protocol. Alcohol withdrawal possible DTs -Symptoms seem to be improving. Continue with CIWA protocol. -Patient was counseled. -Ct librium, thiamine, folic acid, multivitamin. History of Hypertension -This was seen on his prior admission. Currently he is not on any antihypertensive medication at home. He continues to be hypertensive. -Will ct lisinopril. Adjust accordingly. History of left hip fracture status post left hip pinning/chronic hip pain -Continue with his home pain medication. Tobacco dependence -Patient counseled. Smoking cessation. -On nicotine patch. DVT prophylaxis -SCD/teds Discharge Planning Dc to rehab when arranged Problem Qualifiers (1) Sepsis: Qualified Code: A41.9 - Sepsis, due to unspecified organism (2) UTI (urinary tract infection): Qualified Code: N30.00 - Acute cystitis without hematuria Joel Ding MD Apr 07, 2017 12:21
[2017-04-07] MEDS ORDERED: HYDR-3534 PO (14:07)
[2017-04-07] MEDS ORDERED: CHLO25CA9 PO (14:07)
[2017-04-07] MEDS ORDERED: CIPR250T52 PO (16:27)
[2017-04-07] MEDS ORDERED: GNP100TA3 PO (16:27)
[2017-04-07] MEDS ORDERED: SENN1TAB PO (16:27)
[2017-04-07] MEDS ORDERED: LISI10TA3 PO (16:27)
--- NOTE | 2017-04-07 16:28 | HHI.DCPOC ---
Discharge Care Plan Diagnosis: (1) alcoholism (2) UTI (urinary tract infection) (3) Sepsis Your Health Problems Are: Difficulty with ADL Exercise Tolerance Goals to Promote Your Health * To prevent worsening of your condition and complications * To maintain your health at the optimal level Directions to Meet Your Goals Take your medications as prescribed Follow your dietary instruction Follow activity as directed Keep your appointments as scheduled Take your immunizations and boosters as scheduled If your symptoms worsen call your PCP, if no PCP go to Urgent Care Center or Emergency Room Smoking is Dangerous to Your Health. Avoid second hand smoke Call the 24-hour hour crisis hotline for domestic abuse at Joel Ding MD Apr 07, 2017 16:28
--- NOTE | 2017-04-07 16:30 | HHI.FF ---
Face to Face Verification Diagnosis: (1) UTI (urinary tract infection) (2) Sepsis (3) alcoholism Physical Therapy Order: Evaluate and Treat, Improve ambulation, Strength and gait training Home Health Nursing Order: Medical education Diabetic education Nursing assessment with vital signs I have seen patient Reji Kim on 04/07/17. My clinical findings support the need for the requested home health care services because: Ltd mobility - disease progression I certify that my clinical findings support that this patient is homebound because: Unsteady gait/balance Unsafe to leave home unassisted Joel Ding MD Apr 07, 2017 16:30
--- NOTE | 2017-04-07 17:37 | RADRPT ---
EXAM DATE/TIME: 04/07/2017 10:36 [facility] COMPARISON: No previous studies available for comparison. INDICATIONS : Obstruction. MEDICAL HISTORY : Hypertension. Chronic obstructive pulmonary disease. Pancreatitis. Arthritis. Kidney stones. Diabet es. SURGICAL HISTORY : Cholecystectomy. Left hip surgery. Cyst removed from head and neck. ENCOUNTER: Initial ACUITY: 1 day PAIN SCORE: 0/10 LOCATION: Bilateral flank MEASUREMENTS: RIGHT KIDNEY: 12.5 x 6.6 x 7.1 cm LEFT KIDNEY: 11.4 x 6.8 x 5.6 cm FINDINGS: RIGHT KIDNEY: Renal cortex is normal in thickness and echotexture. No hydronephrosis, stone, or mass. LEFT KIDNEY: Renal cortex is normal in thickness and echotexture. No hydronephrosis, stone, or mass. BLADDER: Within normal limits given the degree of distension. CONCLUSION: Normal examination. Macario Jung MD on April 07, 2017 at 17:36 Board Certified Radiologist. This report was verified electronically.
[2017-04-07] MEDS: AMITRIPTYLINE HCL 10 MG TAB PO SCH (20:56)
[2017-04-07] MEDS: CIPROFLOXACIN 250 MG TAB PO SCH (20:58)
[2017-04-08] VITALS: BP 166/74; PULSE 59; RESP 16; TEMP 97.1; O2SAT 95
[2017-04-08] MEDS: chlordiazePOXIDE 25 MG CAP PO SCH ×2 (02:47→11:17)
[2017-04-08 04:00] VITALS: BP 174/68; PULSE 58; RESP 17; TEMP 97.2; O2SAT 94
[2017-04-08 06:21] VITALS: PULSE 61
[2017-04-08] MEDS: INSULIN ASPART SUPPLEMENTAL SCALE SQ SCH ×2 (06:26→11:00)
[2017-04-08 08:00] VITALS: BP 184/80; PULSE 56; RESP 17; TEMP 96.3; O2SAT 94
[2017-04-08] MEDS ORDERED: LISINOPRIL 20 MG TAB PO SCH (09:00)
[2017-04-08] MEDS ORDERED: LISI-515 PO (10:38)
--- NOTE | 2017-04-08 10:41 | HHI.DS ---
Discharge Summary Admission Date Apr 05, 2017 at 14:48 Discharge Date: Apr 08, 2017 Admitting Diagnosis UTI (1) Sepsis ICD Code: A41.9 Diagnosis: Principal (2) UTI (urinary tract infection) ICD Code: N39.0 Diagnosis: Principal (3) alcoholism Diagnosis: Principal Procedures none Brief History - From Admission 66-year-old male with recurrent alcoholism, tobacco dependence, history COPD, history of hypertension, type 2 diabetes with peripheral neuropathy, history of left hip fracture status post hip pinning/year who presented with 2 falls. Patient stated that at baseline he transports himself on a wheelchair and he stated that his bathroom door is too small to fit the wheelchair so he gets out of the wheelchair to use the restroom. He stated the last 2 days he had 2 falls so he went to the emergency department. Patient stated that he fell because of lower extremity weakness. Of note he is a poor historian. During his last admission in April 2016 his providers also stated that patient is a poor historian. He stated that lower extremity weakness started in April when he had the hip fracture. He stated because of the hip fracture his right leg was always weak. But since he hasn't been using his left leg his left leg also became weak. Patient stated that he last had a drink last night. Denies any alcohol use today. Deny any fecal or urinary incontinence. In the emergency department labs imaging was obtained. He was found to have a urinary tract infection. Patient then stated that yet he has been urinating more often. Deny any dysuria or nocturia. Denies abdominal pain or fevers or chills. Patient was found to have a fever of 101.4. All other reviews of systems reviewed and were negative except positive for lower extremity neuropathy. CBC/BMP: 04/07/17 0559 04/07/17 0559 Significant Findings Laboratory Tests Test 04/05/17 04/05/17 04/05/17 04/05/17 11:09 11:15 13:40 13:45 Sodium Level 133 MEQ/L (136-145) Chloride Level 97 MEQ/L (98-107) Estimat Glomerular Filtration 67 ML/MIN (>89) Rate Random Glucose 213 MG/DL (74-106) Aspartate Amino Transf 40 U/L (15-37) (AST/SGOT) Albumin 2.5 GM/DL (3.4-5.0) Red Blood Count 4.00 MIL/MM3 (4.50-5.90) Hemoglobin 12.9 GM/DL (13.0-17.0) Hematocrit 37.6 % (39.0-51.0) Neutrophils (%) (Auto) 81.5 % (16.0-70.0) Lymphocytes (%) (Auto) 8.7 % (9.0-44.0) Monocytes (%) (Auto) 9.1 % (0.0-8.0) Lymphocytes # (Auto) 0.8 TH/MM3 (1.0-4.8) Lactic Acid Level 3.5 mmol/L 2.1 mmol/L (0.4-2.0) (0.4-2.0) Urine Turbidity CLOUDY (CLEAR) Urine Protein 300 mg/dL (NEG-TRACE) Urine Glucose (UA) 300 mg/dL (NEG) Urine Ketones 10 mg/dL (NEG) Urine Occult Blood MOD (NEG) Urine Leukocyte Esterase LARGE (NEG) Urine RBC 20 /hpf (0-3) Urine WBC 142 /hpf (0-5) Urine Bacteria MANY /hpf (NONE) Test 04/06/17 04/07/17 14:22 05:59 Red Blood Count 3.35 MIL/MM3 3.33 MIL/MM3 (4.50-5.90) (4.50-5.90) Hemoglobin 10.8 GM/DL 10.8 GM/DL (13.0-17.0) (13.0-17.0) Hematocrit 32.1 % 31.4 % (39.0-51.0) (39.0-51.0) Neutrophils (%) (Auto) 70.4 % (16.0-70.0) Monocytes (%) (Auto) 13.4 % (0.0-8.0) Lymphocytes # (Auto) 0.6 TH/MM3 (1.0-4.8) Sodium Level 132 MEQ/L 133 MEQ/L (136-145) (136-145) Chloride Level 97 MEQ/L (98-107) Anion Gap 4 MEQ/L (5-15) Estimat Glomerular Filtration 81 ML/MIN (>89) Rate Random Glucose 242 MG/DL 149 MG/DL (74-106) (74-106) Calcium Level 7.8 MG/DL 7.7 MG/DL (8.5-10.1) (8.5-10.1) Potassium Level 3.3 MEQ/L (3.5-5.1) Imaging Last Impressions Renal Ultrasound 04/07/17 0000 Signed Impressions: Service Date/Time: Friday, April 07, 2017 10:36 - CONCLUSION: Normal examination. Macario Jung MD Chest X-Ray 04/05/17 1109 Signed Impressions: Service Date/Time: Wednesday, April 05, 2017 11:17 - CONCLUSION: No acute disease. Tahir Bautista MD PE at Discharge GENERAL: WD WN in no distress SKIN: Warm and dry. CARDIOVASCULAR: Regular rate and rhythm. RESPIRATORY: No accessory muscle use. Clear to auscultation. Breath sounds equal bilaterally. GASTROINTESTINAL: Abdomen soft, non-tender, nondistended. MUSCULOSKELETAL: Extremities without clubbing, cyanosis, or edema. No obvious deformities. NEUROLOGICAL: Awake and alert. No obvious cranial nerve deficits. Generalized weakness. Normal speech. No tremors Hospital Course 66-year-old male poor historian and has a history of alcoholism, type 2 diabetes , peripheral neuropathy, history of hypertension, history of left hip fracture who presented with multiple falls past 2 days. Mechanical falls -From the interview this seems like a chronic problem. On physical exam his lower extremities seems to be intact. -At baseline patient is mostly transports himself in a wheelchair. -Physical therapist was consulted and patient refused to be evaluated by physical therapist. Pt encouraged to be more compliant UTI with severe sepsis -Ucx with Klebsiella. Blood cultures so far negative. Switched to po Cipro Type 2 diabetes with peripheral neuropathy -On last admission patient was not on both gabapentin and Lyrica. Will continue with Lyrica and have patient's nurse confirmed gabapentin with his pharmacist. -Restart home medication of glyburide and metformin. Hypoglycemia protocol Alcohol withdrawal possible DTs -Symptoms seem to be improving. Continue with CIWA protocol. -Patient was counseled. -Ct librium, thiamine, folic acid, multivitamin. Taper Librium counseled regarding benzodiazepine's History of Hypertension -This was seen on his prior admission. Currently he is not on any antihypertensive medication at home. He continues to be hypertensive. -Will increase lisinopril for better BP control. Adjust accordingly. History of left hip fracture status post left hip pinning/chronic hip pain -Continue with his home pain medication. Counseled regarding narcotics Tobacco dependence -Patient counseled. Smoking cessation. -On nicotine patch. DVT prophylaxis -SCD/teds Recommended rehabilitation but patient adamantly refuses. Discharge to home with PT and visiting nurse Pt Condition on Discharge: Stable Discharge Disposition: Disch w/ Home Health Serv Discharge Time: > 30 minutes Discharge Instructions DIET: Follow Instructions for: Heart Healthy Diet, Diabetic Diet Activities you can perform: Regular-No Restrictions Activities to Avoid: Driving Follow up Referrals: PCP Follow-up - 2-3 Days New Medications: Chlordiazepoxide HCl (Chlordiazepoxide HCl) 25 Mg Capsule 50 MG PO Q6H Take 2 pills 4x a day for 2 days then 1 pill 4x a day for 3 days then 1 pill 3x a day for 3 days then 1 pill 2x a day for 3 days then 1 pill daily for 3 days Alcohol Detox #46 MG Ciprofloxacin (Cipro) 250 Mg Tab 250 MG PO Q12HR Infection #14 TAB Lisinopril (Lisinopril) 20 Mg Tab 20 MG PO DAILY Blood Pressure Management #30 TAB Sennosides-Docusate Sodium (Senna Plus 8.6-50 mg) 1 Tab Tab 1 TAB PO BID Prevent Constipation #60 TAB Thiamine HCl (Gnp Vitamin B-1) 100 Mg Tab 100 MG PO DAILY Alcohol Detox #30 TAB Continued Medications: Amitriptyline (Amitriptyline) 10 Mg Tab 10 MG PO HS Control Depression #30 Ref 0 TAB Glipizide-Metformin (Glipizide-Metformin) 5-500 Mg Tab 1 TAB PO DAILY WITH LUNCH Hydrocodone-Acetaminophen (Lortab) 7.5-325 Mg Tab 1 TAB PO TID PRN PAIN #10 Ref 0 TAB (This prescription has been renewed) Pregabalin (Lyrica) 75 Mg Cap 75 MG PO BID #60 Ref 0 CAP Discontinued Medications: Gabapentin (Gabapentin) 800 Mg Tab 800 MG PO QID #90 Ref 0 TAB Joel Ding MD Apr 08, 2017 10:41
[2017-04-08] MEDS ORDERED: GLIPIZIDE METFORMIN PO SCH (10:45)
[2017-04-08] MEDS: FOLIC ACID 1 MG TAB PO SCH (11:17)
[2017-04-08] MEDS: MULTIVITAMIN TAB PO SCH (11:17)
[2017-04-08] MEDS: CIPROFLOXACIN 250 MG TAB PO SCH (11:17)
[2017-04-08] MEDS: DOCUSATE SODIUM 50 MG/SENNA 8.6 MG TAB PO SCH (11:17)
[2017-04-08] MEDS: PREGABALIN 75 MG CAP PO SCH (11:17)
[2017-04-08] MEDS: NICOTINE 21 MG/24 HR PATCH T-DERMAL SCH (11:18)
[2017-04-08] MEDS: THIAMINE HCL 100 MG TAB PO SCH (11:18)
[2017-04-08] MEDS ORDERED: metFORMIN HCL 500 MG TAB PO SCH (12:00)
[2017-04-08] MEDS ORDERED: glipiZIDE 5 MG TAB PO SCH (12:00)
== END 2017-04-08 12:59 | disposition home health service (06) | DRG 872 ==
LOC: NEPE 10:47 → NEDA 14:48 → N06A 18:55
PROVIDERS: ADMIT Internal Medicine; ATTEND Internal Medicine
DX: A41.9 Sepsis, unspecified organism (principal); F10.231 Alcohol dependence with withdrawal delirium; E11.42 Type 2 diabetes mellitus with diabetic polyneuropathy; N39.0 Urinary tract infection, site not specified; J44.9 Chronic obstructive pulmonary disease, unspecified; R65.20 Severe sepsis without septic shock; I10 Essential (primary) hypertension; G89.29 Other chronic pain; M25.552 Pain in left hip; F17.210 Nicotine dependence, cigarettes, uncomplicated; B96.1 Klebsiella pneumoniae [K. pneumoniae] as the cause of diseases classified elsewhere; M19.90 Unspecified osteoarthritis, unspecified site; R29.6 Repeated falls; Z79.84 Long term (current) use of oral hypoglycemic drugs; Z87.442 Personal history of urinary calculi; Y90.0 Blood alcohol level of less than 20 mg/100 ml
CPT/HCPCS: 71010; 76775; 80048; 80053; 80307; 81001; 82948; 83605; 83735; 85025; 85027; 85610; 85730; 87040; 87077; 87086; 87186; 87804; 93005; 94640; 94664; 96374; J0696; J1815; J2060; J2543; J7030

== ENCOUNTER 2018-10-15 14:15 | Inpatient (IN) ==
--- NOTE | 2018-10-15 15:42 | XR ---
EXAM DATE: 10/15/2018 3:37 PM EST AGE/SEX: 68 years / Male INDICATIONS: Altered mental status. CLINICAL DATA: This is the patient's initial encounter. Patient reports that signs and symptoms have been present for 1 day and indicates a pain score of Nonresponsive. MEDICAL/SURGICAL HISTORY: None. . Cholecystectomy. Left hip surgery. Cyst removed from head and neck. [place] [facility] [place]. . FINDINGS: A single AP view of the chest demonstrates the lungs to be symmetrically aerated without evidence of mass, infiltrate or effusion. The cardiomediastinal contours are unremarkable. Osseous structures a re intact. CONCLUSION: No evidence of acute cardiopulmonary disease. Electronically signed by: Macario Dias MD Board Certified Radiologist 10/15/2018 3:40 PM EST
[2018-10-15 15:51] LABS: Baso % (Auto) 0.2 % (0.0-2.0); Eos # (Auto) 0.2 th/mm3 (0.0-0.4); Eos % (Auto) 1.4 % (0.0-4.0); Hematocrit 39.8 % (39.0-51.0); Hemoglobin 13.6 gm/dL (13.0-17.0); Lymph % (Auto) 17.6 % (9.0-44.0); Mean Corpuscular HGB Conc 34.1 % (32.0-36.0); Mean Corpuscular Hemoglobin 32.3 pg (27.0-34.0); Mean Corpuscular Volume 94.6 fL (80.0-100.0); Mean Platelet Volume 8.9 fL (7.0-11.0); Mono # (Auto) 1.9 th/mm3 (0.0-0.9); Neut # (Auto) 7.2 th/mm3 (1.8-7.7); Neut % (Auto) 63.8 % (16.0-70.0); Platelet Count 309 th/mm3 (150-450); Red Blood Count 4.21 mil/mm3 (4.50-5.90); Red Cell Distribution Width 11.8 % (11.6-17.2); White Blood Count 11.2 th/mm3 (4.0-11.0)
--- NOTE | 2018-10-15 15:54 | CT ---
EXAM DATE: 10/15/2018 3:49 PM EST AGE/SEX: 68 years / Male INDICATIONS: Altered mental status, possible syncopal episode today. CLINICAL DATA: This is the patient's initial encounter. Patient reports that signs and symptoms have been present for 1 day and indicates a pain score of Nonresponsive. MEDICAL/SURGICAL HISTORY: Diabetes. Hypertension. None. RADIATION DOSE: 56.35 CTDI (mGy) COMPARISON: [facility] – [place], [place] HEAD W/O CONTRAST, 10/08/2018. . TECHNIQUE: CT of the head without contrast. Using automated exposure control and adjustment of the mA and/or kV according to patient size, radiation dose was kept as low as reasonably achievable to ob tain optimal diagnostic quality images. DICOM format image data is available electronically for revi ew and comparison. FINDINGS: Cerebrum: The ventricles are normal for age. No evidence of midline shift, mass lesion, hemorrhage or acute infarction. No extraaxial fluid collections are seen. Posterior Fossa: The cerebellum and brainstem are intact. The 4th ventricle is midline. The cerebe llopontine angle is unremarkable. Extracranial: The visualized portion of the orbits is intact. Skull: The calvaria is intact. No evidence of skull fracture. CONCLUSION: No acute intracranial abnormality. . . Electronically signed by: Macario Dias MD Board Certified Radiologist 10/15/2018 3:52 PM EST
[2018-10-15 16:01] LABS: Activated Partial Thrombo Time 24.9 sec (23.4-31.7); Prothrombin Time 9.8 sec (9.8-11.6)
[2018-10-15 16:02] LABS: Amphetamine Screen,Urine Neg (Neg); Barbiturate Screen,Urine Pos (Neg); Cannabinoid Screen,Urine Neg (Neg); Cocaine Screen,Urine Neg (Neg)
[2018-10-15 16:03] LABS: Opiate Screen,Urine Neg (Neg)
[2018-10-15 16:12] LABS: Amorphous Sediment,Urine Moderate /hpf; Bacteria,Urine Moderate /hpf; Bilirubin,Urine Negative (Negative); Clarity,Urine Cloudy (Clear); Color,Urine Amber (Yellw/Straw); Glucose,Urine (UA) 50 mg/dL (Negative); Hyaline Casts,Urine 47 /lpf (0-3); Leukocyte Esterase,Urine Negative (Negative); Mucus,Urine Few /lpf (Occasional); Nitrite,Urine Negative (Negative); Squamous Epithelial Cell,Urine 1 /hpf (0-5)
[2018-10-15 16:14] LABS: Urobilinogen,Urine 0.2 mg/dL (Less than 2)
[2018-10-15 16:17] LABS: Alanine Aminotransferase 25 U/L (12-78); Albumin 2.3 g/dL (3.4-5.0); Alkaline Phosphatase 78 U/L (45-117); Anion Gap 10 meq/L (5-15); Aspartate Aminotransferase 24 U/L (15-37); Blood Urea Nitrogen 43 mg/dL (7-18); Calcium 8.3 mg/dL (8.5-10.1); Carbon Dioxide 30.1 meq/L (21.0-32.0); Chloride 95 meq/L (98-107); Glomerular Filtration Rate 28 mL/min (>89); Glucose,Random 87 mg/dL (74-106); Magnesium 1.9 mg/dL (1.5-2.5); Potassium 3.1 meq/L (3.5-5.1); Sodium 135 meq/L (136-145); Total Protein 7.2 g/dL (6.4-8.2)
[2018-10-15] MEDS ORDERED: Sod Chloride 0.9% Inj 1,000 ML IV.SIG SCH (17:30)
--- NOTE | 2018-10-15 18:00 | ED ---
HPI General Chief complaint: Altered Mental Status Stated complaint: Gen med Time Seen by Provider: 10/15/18 15:17 Source: EMS Mode of arrival: EMS Limitations: altered mental status History of Present Illness HPI narrative: Patient is a 68 year old male BIBEMS from his halfway due to altered mental status. Per EMS patient was seen to fall out of his wheelchair at the halfway today. Patient is altered on arrival, unable to provide any history. Related Data Home Medications Medication Instructions Recorded Confirmed furosemide 20 mg PO DAILY PRN 10/09/18 10/15/18 glipizide-metformin 1 tab PO BID 10/09/18 10/15/18 lovastatin 10 mg PO DAILY 10/09/18 10/15/18 pregabalin [Lyrica] 100 mg PO BID 10/09/18 10/15/18 trazodone 100 mg PO DAILY 10/09/18 10/15/18 insulin aspart U-100 [Novolog 1 sliding scale dose SUBCUT TID 10/15/18 10/15/18 U-100 Insulin aspart] Previous Rx's Medication Instructions Recorded amlodipine 5 mg PO DAILY #30 tab 10/11/18 carvedilol [Coreg] 3.125 mg PO BID #60 tab 10/11/18 lisinopril 40 mg PO DAILY #30 tab 10/11/18 hydrochlorothiazide 12.5 mg PO DAILY #30 cap 10/12/18 spironolactone [Aldactone] 25 mg PO DAILY #30 tab 10/12/18 thiamine HCl (vitamin B1) 100 mg PO BID #60 tab 10/12/18 Allergies Allergy/AdvReac Type Severity Reaction Status Date / Time codeine AdvReac Severe SEVERE GI Verified 10/15/18 14:53 UPSET Review of Systems ROS Unobtainable ROS Unobtainable: unobtainable due to mental status PMFSH Medical History Medical History Diabetes (Acute) HTN (hypertension) (Acute) Surgical History Surgical History History of cholecystectomy (Acute) Family History Family History Mother Diabetes Heart disease Social History Social History Substance History: No History of Abuse Second Hand Smoke Exposure: No Smoking Status: Unknown if ever smoked Tobacco Type: Cigarettes How Often Do You Have a Drink Containing Alcohol: Unable to Obtain Recent Out of Country Travel within the Last 8 Weeks: No Immunization History Tetanus Immunization: Unable to Assess Exam Narrative Exam Narrative: GENERAL: Awake, but unresponsive. SKIN: Focused skin assessment warm/dry. Bruising on both arms. HEAD: Atraumatic. Normocephalic. EYES: Pupils equal and round and reactive. No scleral icterus. EOMI. ENT: Mucous membranes pink and moist. NECK: Trachea midline. No JVD. CARDIOVASCULAR: Regular rate and rhythm. No murmur appreciated. RESPIRATORY: No accessory muscle use. Clear to auscultation. Breath sounds equal bilaterally. GASTROINTESTINAL: Abdomen soft, non-tender, nondistended. MUSCULOSKELETAL: No obvious deformities. No clubbing. No cyanosis. No edema. NEUROLOGICAL: Awake but does not respond to any commands or stimuli. Course Initial Documented Vital Signs Temperature 97.8 F 10/15/18 14:56 Pulse Rate 68 10/15/18 14:56 Respiratory Rate 16 10/15/18 14:56 Blood Pressure 182/77 H 10/15/18 14:56 Pulse Oximetry 98 10/15/18 14:56 Last Documented Vital Signs Temperature 97.7 F 10/15/18 15:18 Pulse Rate 73 10/15/18 15:18 Respiratory Rate 17 10/15/18 15:18 Blood Pressure 153/67 H 10/15/18 15:18 Pulse Oximetry 99 10/15/18 15:18 Medical Decision Making [facility] Narrative Medical decision making narrative: Patient is a 68 year old male who comes in due to altered mental status. Patient is unresponsive on arrival. IV established, labs sent. Labs concerning for elevated creatinine and BUN. CT head performed shows no acute abnormalities. After about an hour, patient became responsive, it talking and has no complaints. He says he does not know how he got to the hospital or what happened today. Patient will be admitted for further management. Medical Screen Exam Complete: Yes Emergency Medical Condition: Yes Differential Diagnosis Differential Diagnosis: AMS vs dehydration vs electrolyte abnormalities vs seizure vs CVA Medical Records Medical records reviewed: Yes I reviewed the patient's medical records. Lab Data Lab results reviewed: Yes I reviewed the patient's lab results. Result diagrams: 10/15/18 15:25 10/15/18 15:25 Lab Results 10/15/18 10/15/18 10/15/18 Range/Units 15:25 15:25 15:25 WBC 11.2 H (4.0-11.0) th/mm3 RBC 4.21 L (4.50-5.90) mil/mm3 Hgb 13.6 (13.0-17.0) gm/dL Hct 39.8 (39.0-51.0) % MCV 94.6 (80.0-100.0) fL MCH 32.3 (27.0-34.0) pg MCHC 34.1 (32.0-36.0) % RDW 11.8 (11.6-17.2) % Plt Count 309 D (150-450) th/mm3 MPV 8.9 (7.0-11.0) fL Neut % (Auto) 63.8 (16.0-70.0) % Lymph % (Auto) 17.6 (9.0-44.0) % Grainger % (Auto) 17.0 H (0.0-8.0) % Eos % (Auto) 1.4 (0.0-4.0) % Baso % (Auto) 0.2 (0.0-2.0) % Neut # (Auto) 7.2 (1.8-7.7) th/mm3 Lymph # (Auto) 2.0 (1.0-4.8) th/mm3 Grainger # (Auto) 1.9 H (0.0-0.9) th/mm3 Eos # (Auto) 0.2 (0.0-0.4) th/mm3 Baso # (Auto) 0.0 (0.0-0.2) th/mm3 WBC Differential . Differential Comment Auto diff final PT 9.8 (9.8-11.6) sec INR 1.0 Ratio APTT 24.9 (23.4-31.7) sec Sodium 135 L (136-145) meq/L Potassium 3.1 L (3.5-5.1) meq/L Chloride 95 L (98-107) meq/L Carbon Dioxide 30.1 (21.0-32.0) meq/L Anion Gap 10 (5-15) meq/L BUN 43 H (7-18) mg/dL Creatinine 2.34 H (0.60-1.30) mg/dL Estimated GFR 28 L (>89) mL/min Random Glucose 87 (74-106) mg/dL Calcium 8.3 L (8.5-10.1) mg/dL Magnesium 1.9 (1.5-2.5) mg/dL Total Bilirubin 0.4 (0.2-1.0) mg/dL AST 24 (15-37) U/L ALT 25 (12-78) U/L Alkaline Phosphatase 78 (45-117) U/L Ammonia (11-32) mcmol/L Troponin I Less than 0.02 L (0.02-0.05) ng/mL Total Protein 7.2 D (6.4-8.2) g/dL Albumin 2.3 L (3.4-5.0) g/dL Urine Color (Yellw/Straw) Urine Clarity (Clear) Urine pH (5.0-8.5) Ur Specific Snyder (1.002-1.035) Urine Protein (Neg-Trace) mg/dL Urine Glucose (UA) (Negative) mg/dL Urine Ketones (Negative) mg/dL Urine Occult Blood (Negative) Urine Nitrate (Negative) Urine Bilirubin (Negative) Urine Urobilinogen (Less than 2) mg/dL Ur Leukocyte Esterase (Negative) Urine RBC (0-3) /hpf Urine WBC (0-5) /hpf Ur Squamous Epith Cells (0-5) /hpf Amorphous Sediment (None) /hpf Urine Bacteria (None) /hpf Hyaline Casts (0-3) /lpf Urine Mucus (Occasional) /lpf Micro UA Comment Ur Microscopic Review Urine Culture Comments Urine Opiates Screen (Neg) Ur Barbiturates Screen (Neg) Ur Amphetamines Screen (Neg) U Benzodiazepines Scrn (Neg) Urine Cocaine Screen (Neg) U Cannabinoids Screen (Neg) 10/15/18 10/15/18 10/15/18 Range/Units 15:25 15:25 15:30 WBC (4.0-11.0) th/mm3 RBC (4.50-5.90) mil/mm3 Hgb (13.0-17.0) gm/dL Hct (39.0-51.0) % MCV (80.0-100.0) fL MCH (27.0-34.0) pg MCHC (32.0-36.0) % RDW (11.6-17.2) % Plt Count (150-450) th/mm3 MPV (7.0-11.0) fL Neut % (Auto) (16.0-70.0) % Lymph % (Auto) (9.0-44.0) % Grainger % (Auto) (0.0-8.0) % Eos % (Auto) (0.0-4.0) % Baso % (Auto) (0.0-2.0) % Neut # (Auto) (1.8-7.7) th/mm3 Lymph # (Auto) (1.0-4.8) th/mm3 Grainger # (Auto) (0.0-0.9) th/mm3 Eos # (Auto) (0.0-0.4) th/mm3 Baso # (Auto) (0.0-0.2) th/mm3 WBC Differential Differential Comment PT (9.8-11.6) sec INR Ratio APTT (23.4-31.7) sec Sodium (136-145) meq/L Potassium (3.5-5.1) meq/L Chloride (98-107) meq/L Carbon Dioxide (21.0-32.0) meq/L Anion Gap (5-15) meq/L BUN (7-18) mg/dL Creatinine (0.60-1.30) mg/dL Estimated GFR (>89) mL/min Random Glucose (74-106) mg/dL Calcium (8.5-10.1) mg/dL Magnesium (1.5-2.5) mg/dL Total Bilirubin (0.2-1.0) mg/dL AST (15-37) U/L ALT (12-78) U/L Alkaline Phosphatase (45-117) U/L Ammonia 24 (11-32) mcmol/L Troponin I (0.02-0.05) ng/mL Total Protein (6.4-8.2) g/dL Albumin (3.4-5.0) g/dL Urine Color Malgorzata (Yellw/Straw) Urine Clarity Cloudy H (Clear) Urine pH 5.0 (5.0-8.5) Ur Specific Snyder 1.020 (1.002-1.035) Urine Protein 100 H (Neg-Trace) mg/dL Urine Glucose (UA) 50 (Negative) mg/dL Urine Ketones Negative (Negative) mg/dL Urine Occult Blood Small H (Negative) Urine Nitrate Negative (Negative) Urine Bilirubin Negative (Negative) Urine Urobilinogen 0.2 (Less than 2) mg/dL Ur Leukocyte Esterase Negative (Negative) Urine RBC 6 H (0-3) /hpf Urine WBC 7 H (0-5) /hpf Ur Squamous Epith Cells 1 (0-5) /hpf Amorphous Sediment Moderate H (None) /hpf Urine Bacteria Moderate H (None) /hpf Hyaline Casts 47 (0-3) /lpf Urine Mucus Few H (Occasional) /lpf Micro UA Comment Cath-culture ind Ur Microscopic Review Not Reportable Urine Culture Comments Cath-cult indicated Urine Opiates Screen Neg (Neg) Ur Barbiturates Screen Pos H (Neg) Ur Amphetamines Screen Neg (Neg) U Benzodiazepines Scrn Neg (Neg) Urine Cocaine Screen Neg (Neg) U Cannabinoids Screen Neg (Neg) Imaging Data Radiologist's impression: Chest X-Ray 10/15/18 15:18 CONCLUSION: No evidence of acute cardiopulmonary disease. Head CT 10/15/18 15:18 CONCLUSION: No acute intracranial abnormality. . . ECG Data EKG Prior to Arrival: No Attestation: I personally reviewed and interpreted this ECG as follows: Interpretation: EG shows NSR at a rate of 68, RBBB Discharge Plan Discharge Disposition Patient Disposition: ED Admit(ED Internal Use Only) Discharge Condition Condition: Stable Discharge Details Diagnosis: Altered mental status, MIGEL (acute kidney injury) Physicians Team ED Provider: Lisseth Sharma Primary Care Provider: UNKNOWN, Rxs /Orders / Referrals /Forms Prescriptions: No Action lovastatin 10 mg Tablet 10 mg PO DAILY RF: 0 trazodone 100 mg Tablet 100 mg PO DAILY RF: 0 furosemide 20 mg Tablet 20 mg PO DAILY PRN (Reason: Edema) RF: 0 glipizide-metformin 5-500 mg Tablet 1 tab PO BID RF: 0 pregabalin [Lyrica] 100 mg Capsule 100 mg PO BID RF: 0 lisinopril 40 mg tablet 40 mg PO DAILY Qty: 30 RF: 0 amlodipine 5 mg tablet 5 mg PO DAILY Qty: 30 RF: 0 carvedilol [Coreg] 3.125 mg tablet 3.125 mg PO BID Qty: 60 RF: 0 thiamine HCl (vitamin B1) 100 mg Tablet 100 mg PO BID Qty: 60 RF: 0 spironolactone [Aldactone] 25 mg Tablet 25 mg PO DAILY Qty: 30 RF: 0 hydrochlorothiazide 12.5 mg Capsule 12.5 mg PO DAILY Qty: 30 RF: 0 insulin aspart U-100 [Novolog U-100 Insulin aspart] 100 unit/mL Solution 1 sliding scale dose SUBCUT TID RF: 0 Status ED Status: With Doctor
[2018-10-15] MEDS ORDERED: Bisacodyl 10 MG Supp RECTAL PRN (18:07)
[2018-10-15] MEDS ORDERED: Acetaminophen 325 MG Tablet PO PRN (18:07)
--- NOTE | 2018-10-15 18:20 | P.HPIM ---
History of Present Illness Primary Care Physician: UNKNOWN Chief Complaint: AMS History of Present Illness: Patient is a 68 year old male with PMH of DM, HTN was sent from SNF by EMS from his [facility] due to altered mental status. Per EMS patient was seen to fall out of his wheelchair at the [facility] today. Patient was noted altered on arrival, unable to provide any history. However he did wake up afterwards without any intervantion. The patient says he doesn't recall the events. He is tired and sleepy. He is more awake and alert he knows his full name date of and knows he is at [facility] he knows the year 2018 not oriented to month and date. The patient denies having any chest pain or shortness of breath. No cough fever or chills. He feels tired. No nausea or vomiting no abdominal pain, no urinary complaints. The patient is also a very poor historian. Inpatient Certification Inpatient Certification: I certify that the inpatient services were ordered in accordance with Medicare regulations governing the order. This includes certification that hospital inpatient services are reasonable and necessary and in the case of services not specified as inpatient-only under 42 CFR 419.22(n), that they are appropriately provided as inpatient services in accordance to with the 2-midnight benchmark under 43 CFR 412.3(e) Estimated Total Length of Stay (Days): 4 Plans for Post Hospital Care: SNF Review of Systems Review of Systems: all other systems reviewed are negative [facility] Medical History Medical History Diabetes (Acute) HTN (hypertension) (Acute) Surgical History Surgical History History of cholecystectomy (Acute) Family History Family History Mother Diabetes Heart disease Social History Social History Substance History: No History of Abuse Second Hand Smoke Exposure: No Smoking Status: Unknown if ever smoked Tobacco Type: Cigarettes How Often Do You Have a Drink Containing Alcohol: Unable to Obtain Recent Out of Country Travel within the Last 8 Weeks: No Immunization History Tetanus Immunization: Unable to Assess Medications and Allergies Allergies Allergy/AdvReac Type Severity Reaction Status Date / Time codeine AdvReac Severe SEVERE GI Verified 10/15/18 14:53 UPSET Home Medications Medication Instructions Recorded Confirmed Type furosemide 20 mg PO DAILY PRN 10/09/18 10/15/18 History glipizide-metformin 1 tab PO BID 10/09/18 10/15/18 History lovastatin 10 mg PO DAILY 10/09/18 10/15/18 History pregabalin [Lyrica] 100 mg PO BID 10/09/18 10/15/18 History trazodone 100 mg PO DAILY 10/09/18 10/15/18 History insulin aspart U-100 [Novolog 1 sliding scale dose SUBCUT TID 10/15/18 10/15/18 History U-100 Insulin aspart] Active Medications: Active Medications Acetaminophen (Tylenol) 650 mg PO Q4H PRN PRN Reason: Temp > 100.4 Al Hydroxide/Mg Hydroxide (Milk Of Magnesia Liq) 30 ml PO Q12H PRN PRN Reason: Mild Constipation Amlodipine Besylate (Norvasc) 5 mg PO DAILY [facility] Bisacodyl (Dulcolax Supp) 10 mg RECTAL DAILY PRN PRN Reason: SEVERE CONSITIPATION Carvedilol (Coreg) 3.125 mg PO BID [facility] Heparin Sodium (Porcine) (Heparin Inj) 5,000 units SQ Q12H [facility] Sodium Chloride (Ns Inj) 1,000 mls @ 1,000 mls/hr IV.SIG BOLUS TIFFANI Stop: 10/15/18 18:29 Last Admin: 10/15/18 17:27 Dose: 1,000 mls/hr Sodium Chloride (Ns Inj) 1,000 mls @ 100 mls/hr IV.CONT .Q10H [facility] Lactulose (Lactulose Liq) 30 ml PO DAILY PRN PRN Reason: SEVERE CONSITIPATION Ondansetron HCl (Zofran Inj) 4 mg IV.PUSH Q6H PRN PRN Reason: NAUSEA OR VOMITING Pravastatin Sodium (Pravachol) 10 mg PO DAILY [facility] Pregabalin (Lyrica) 100 mg PO BID [facility] Senna/Docusate Sodium (Nikki-Colace) 1 tab PO BID [facility] Sennosides (Senokot) 17.2 mg PO Q12H PRN PRN Reason: Moderate Constipation Sodium Chloride (Ns Flush) 2 ml IV.FLUSH PRN PRN PRN Reason: FLUSH AFTER USING IV ACCESS Last Admin: 10/15/18 17:26 Dose: 2 ml Sodium Chloride (Ns Flush) 2 ml IV.FLUSH BID [facility] Sodium Chloride (Ns Flush) 2 ml IV.FLUSH PRN PRN PRN Reason: FLUSH AFTER USING IV ACCESS Thiamine HCl (Vitamin B1) 100 mg PO BID [facility] Trazodone HCl (Desyrel) 100 mg PO DAILY [facility] Physical Exam Vital signs: Vital Signs 10/15/18 14:56 10/15/18 15:18 Temperature 97.8 F 97.7 F Pulse Rate 68 73 Respiratory Rate 16 17 Blood Pressure 182/77 H 153/67 H Pulse Oximetry 98 99 Intake & Output 10/14/18 10/15/18 10/15/18 18:59 06:59 18:59 Weight 81.647 kg Narrative: GENERAL: Pleasantly confused 68-year-old male, well-nourished well- developed appears in not acute distress SKIN: Warm and dry. HEAD: Atraumatic. Normocephalic. EYES: Pupils equal and round. No scleral icterus. No injection or drainage. ENT: No nasal bleeding or discharge. Mucous membranes pink and moist. NECK: Trachea midline. No JVD. CARDIOVASCULAR: Regular rate and rhythm. RESPIRATORY: No accessory muscle use. Clear to auscultation. Breath sounds equal bilaterally. GASTROINTESTINAL: Abdomen soft, non-tender, nondistended. Hepatic and splenic margins not palpable. MUSCULOSKELETAL: Extremities without clubbing, cyanosis, or edema. No obvious deformities. NEUROLOGICAL: Awake and alert oriented by full name, date of , president of [facility] and year 2018. No obvious cranial nerve deficits. Motor grossly within normal limits. Follows commands. Normal speech. PSYCHIATRIC: Appropriate mood and affect; insight and judgment normal. Results Labs CBC & Chem 7: 10/15/18 15:25 10/15/18 15:25 Imaging Impressions Chest X-Ray 10/15/18 15:18 CONCLUSION: No evidence of acute cardiopulmonary disease. Head CT 10/15/18 15:18 CONCLUSION: No acute intracranial abnormality. . . Caprini VTE Risk Assessment Caprini VTE Risk Assessment: Moderate/High Risk (score >= 2) Caprini Risk Assessment Model: Point Value = 1 Point Value = 2 Point Value = 3 Point Value = 5 Age 41-60 Minor surgery BMI > 25 kg/m2 Swollen legs Varicose veins or History of unexplained or recurrent spontaneous Oral contraceptives or hormone replacement Sepsis (< 1 month) Serious lung disease, including pneumonia (< 1 month) Abnormal pulmonary function Acute myocardial infarction Congestive heart failure (< 1 month) History of inflammatory bowel disease Medical patient at bed rest Age 61-74 Arthroscopic surgery Major open surgery (> 45 min) Laparoscopic surgery (> 45 min) Malignancy Confined to bed (> 72 hours) Immobilizing plaster cast Central venous access Age >= 75 History of VTE Family history of VTE Factor V Leiden Prothrombin [id number] Lupus anticoagulant Anticardiolipin antibodies Elevated serum homocysteine Heparin-induced thrombocytopenia Other congenital or acquired thrombophilia Stroke (< 1 month) Elective arthroplasty Hip, pelvis, or leg fracture Acute spinal cord injury (< 1 month) Prophylaxis Regimen: Total Risk Factor Score Risk Level Prophylaxis Regimen 0-1 Low Early ambulation 2 Moderate Order ONE of the following: *Sequential Compression Device (SCD) *Heparin 5000 units SQ BID 3-4 Higher Order ONE of the following medications: *Heparin 5000 units SQ TID *Enoxaparin/Lovenox 40 mg SQ daily (WT < 150 kg, CrCl > 30 mL/min) *Enoxaparin/Lovenox 30 mg SQ daily (WT < 150 kg, CrCl > 10-29 mL/min) *Enoxaparin/Lovenox 30 mg SQ BID (WT < 150 kg, CrCl > 30 mL/min) AND/OR *Sequential Compression Device (SCD) 5 or more Highest Order ONE of the following medications: *Heparin 5000 units SQ TID (Preferred with Epidurals) *Enoxaparin/Lovenox 40 mg SQ daily (WT < 150 kg, CrCl > 30 mL/min) *Enoxaparin/Lovenox 30 mg SQ daily (WT < 150 kg, CrCl > 10-29 mL/min) *Enoxaparin/Lovenox 30 mg SQ BID (WT < 150 kg, CrCl > 30 mL/min) AND *Sequential Compression Device (SCD) Assessment and Plan Plan Pleasantly confused 68 yo male, with PMH of DM, HTN, diabetic neuropathy presents with syncope, AMS Syncope Acute encephalopathy likely 2/2 to dehydration noted with acute MIGEL Acute kidney injury with creatinine of 2.3 on admission Diabetes mellitus Diabetic neuropathy Hypertension History of alcoholism Hold Lasix, lisinopril and hydrochlorothiazide patient noted with acute kidney injury. Start IV fluids, monitor kidney function He is back at his baseline mentation Monitor electrolytes and replace Insulin sliding scale, Accu-Cheks Restarted home medications as appropriate DVT prophylaxis heparin subq Discussed with the patient, nurse, ED physician
[2018-10-15] MEDS: Sod Chloride 0.9% Inj 1,000 ML IV.CONT SCH (18:30)
[2018-10-15] MEDS: Heparin - SQ 10,000 UNITS/ML Vial SQ SCH (18:30)
[2018-10-16] MEDS: Senna/Docusate Sodium 8.6/50 MG Tablet PO SCH ×4 (01:00→21:34)
[2018-10-16] MEDS: Sod Chloride 0.9% Inj 1,000 ML IV.CONT SCH ×4 (02:56→23:24)
[2018-10-16] MEDS: Heparin - SQ 10,000 UNITS/ML Vial SQ SCH ×2 (05:21→17:45)
[2018-10-16 06:18] LABS: Baso # (Auto) 0.1 th/mm3 (0.0-0.2); Baso % (Auto) 0.6 % (0.0-2.0); Eos # (Auto) 0.1 th/mm3 (0.0-0.4); Eos % (Auto) 0.9 % (0.0-4.0); Hematocrit 37.1 % (39.0-51.0); Hemoglobin 13.3 gm/dL (13.0-17.0); Lymph # (Auto) 1.1 th/mm3 (1.0-4.8); Lymph % (Auto) 11.8 % (9.0-44.0); Mean Corpuscular HGB Conc 35.8 % (32.0-36.0); Mean Corpuscular Hemoglobin 33.4 pg (27.0-34.0); Mean Corpuscular Volume 93.3 fL (80.0-100.0); Mean Platelet Volume 9.2 fL (7.0-11.0); Mono % (Auto) 10.2 % (0.0-8.0); Neut # (Auto) 7.3 th/mm3 (1.8-7.7); Neut % (Auto) 76.5 % (16.0-70.0); Platelet Count 369 th/mm3 (150-450); Red Blood Count 3.98 mil/mm3 (4.50-5.90); White Blood Count 9.5 th/mm3 (4.0-11.0)
[2018-10-16 07:57] LABS: Alanine Aminotransferase 23 U/L (12-78); Albumin 2.1 g/dL (3.4-5.0); Anion Gap 9 meq/L (5-15); Aspartate Aminotransferase 21 U/L (15-37); Blood Urea Nitrogen 45 mg/dL (7-18); Calcium 7.9 mg/dL (8.5-10.1); Carbon Dioxide 27.6 meq/L (21.0-32.0); Chloride 102 meq/L (98-107); Glomerular Filtration Rate 47 mL/min (>89); Glucose,Random 88 mg/dL (74-106); Potassium 3.3 meq/L (3.5-5.1); Sodium 139 meq/L (136-145)
[2018-10-16 08:05] LABS: Alkaline Phosphatase 73 U/L (45-117); Total Protein 6.6 g/dL (6.4-8.2)
[2018-10-16] MEDS: traZODone 100 MG Tablet PO SCH (09:04)
[2018-10-16] MEDS: amLODIPine 5 MG Tablet PO SCH (09:04)
--- NOTE | 2018-10-16 10:13 | P.PNIM ---
Subjective Interval history: Patient says he is feeling right. Denies any chest pain or shortness of breath. He knows the year, when asked if he knows where he is he says he sees a lot of nurses and doctors so he must be in a hospital. Physical Exam Vital signs: Vital Signs 10/15/18 14:56 10/15/18 15:18 10/15/18 18:07 Temperature 97.8 F 97.7 F 97.8 F Pulse Rate 68 73 67 Respiratory Rate 16 17 17 Blood Pressure 182/77 H 153/67 H 153/64 H Pulse Oximetry 98 99 98 10/15/18 19:26 10/16/18 02:47 10/16/18 03:00 Temperature 98 F Pulse Rate 74 70 63 Respiratory Rate 15 18 Blood Pressure 173/70 H 166/77 H Pulse Oximetry 99 99 10/16/18 04:00 10/16/18 08:00 Temperature 97.6 F 99.7 F H Pulse Rate 76 73 Respiratory Rate 19 14 Blood Pressure 165/75 H 183/82 H Pulse Oximetry 97 96 Intake & Output 10/15/18 10/16/18 10/16/18 18:59 06:59 18:59 Intake Total 1000 / 1000 1280 / 1280 Output Total 400 / 400 200 / 200 Balance 600 / 600 1080 / 1080 Weight 81.647 kg 77 kg Intake: IV 1000 / 1000 800 / 800 NS Inj 1,000 ML @ 100 mls/hr IV 800 / 800 .CONT .Q10H [facility] Rx#:[id number] NS Inj 1,000 ML @ 1000 mls/hr 1000 / 1000 IV.SIG BOLUS TIFFANI Rx#:[id number] Oral 480 / 480 Output: Urine 200 / 200 Urine Amount (Catheter) 400 / 400 Indwelling Urethral Catheter 400 / 400 Narrative: GENERAL: Patient sitting up in bed. Appears comfortable. Confused but somehow knows the year, realizes he is in the hospital. SKIN: Warm and dry. HEAD: Normocephalic. EYES: No scleral icterus. No injection or drainage. NECK: Supple, trachea midline. No JVD or lymphadenopathy. CARDIOVASCULAR: Regular rate and rhythm without murmurs, gallops, or rubs. RESPIRATORY: Breath sounds equal bilaterally. No accessory muscle use. GASTROINTESTINAL: Abdomen soft, non-tender, nondistended. MUSCULOSKELETAL: No cyanosis, or edema. BACK: Nontender without obvious deformity. No CVA tenderness. Urinary Catheter Management Indwelling Urethral Catheter: Cath placed during this visit: yes Reason for continuing: Acute urinary retention Insertion date: 10/15/18 Insertion time: 18:00 Results Labs CBC & Chem 7: 10/16/18 05:58 10/16/18 07:30 Imaging Imaging: Impressions Chest X-Ray 10/15/18 15:18 CONCLUSION: No evidence of acute cardiopulmonary disease. Head CT 10/15/18 15:18 CONCLUSION: No acute intracranial abnormality. . . Assessment and Plan Plan Pleasantly confused 68 yo male, with PMH of DM, HTN, diabetic neuropathy presents with syncope, AMS //Syncope //Acute encephalopathy likely 2/2 to dehydration noted with acute MIGEL //Acute kidney injury with creatinine of 2.3 on admission //Diabetes mellitus //Diabetic neuropathy //Hypertension //History of alcoholism Hold Lasix, lisinopril and hydrochlorothiazide patient noted with acute kidney injury. Start IV fluids, monitor kidney function He is back at his baseline mentation Monitor electrolytes and replace Insulin sliding scale, Accu-Cheks Restarted home medications as appropriate = 10/16. Acute kidney injury improving. Creatinine 1.5 from 2.34 yesterday. BUN still elevated at 45. Continue with [place]odeaux. Continue to hold hydrochlorothiazide and lisinopril. Continue IV fluids. Potassium 3.3. Will monitor. DVT prophylaxis heparin subq Disposition. Hopefully if labs continue to improve by tomorrow we will discharge to SNF.
--- NOTE | 2018-10-16 16:04 | ECG ---
Date Performed: 10/15/2018 Time Performed: 15:08:35 PTAGE: 68 years EKG: Sinus rhythm RIGHT BUNDLE BRANCH BLOCK Secondary ST-T wave changes. Since previous tracing, no significant change noted ABNORMAL ECG PREVIOUS TRACING : 10/08/2018 20.25 DOCTOR: aBo Parker Interpretating Date/Time 10/16/2018 16:03:44
[2018-10-16] MEDS ORDERED: Dextrose 50% in Water 50 ML Vial IV.PUSH PRN (20:38)
[2018-10-16] MEDS: Insulin NovoLOG Aspart Correctional Sugar Inj SQ SCH (21:34)
[2018-10-17] MEDS: Insulin NovoLOG Aspart Correctional Sugar Inj SQ SCH ×4 (02:32→17:26)
[2018-10-17] MEDS: Sod Chloride 0.9% Inj 1,000 ML IV.CONT SCH (03:39)
[2018-10-17] MEDS: Heparin - SQ 10,000 UNITS/ML Vial SQ SCH ×2 (05:19→17:26)
[2018-10-17 06:29] LABS: Baso % (Auto) 0.5 % (0.0-2.0); Eos # (Auto) 0.1 th/mm3 (0.0-0.4); Eos % (Auto) 1.4 % (0.0-4.0); Hematocrit 32.8 % (39.0-51.0); Hemoglobin 11.3 gm/dL (13.0-17.0); Lymph # (Auto) 1.1 th/mm3 (1.0-4.8); Mean Corpuscular HGB Conc 34.4 % (32.0-36.0); Mean Corpuscular Hemoglobin 32.7 pg (27.0-34.0); Mean Platelet Volume 8.4 fL (7.0-11.0); Mono # (Auto) 0.8 th/mm3 (0.0-0.9); Mono % (Auto) 12.5 % (0.0-8.0); Neut # (Auto) 4.3 th/mm3 (1.8-7.7); Neut % (Auto) 68.6 % (16.0-70.0); Platelet Count 273 th/mm3 (150-450); Red Blood Count 3.45 mil/mm3 (4.50-5.90); Red Cell Distribution Width 11.7 % (11.6-17.2); White Blood Count 6.2 th/mm3 (4.0-11.0)
[2018-10-17 06:59] LABS: Albumin 1.9 g/dL (3.4-5.0); Calcium 7.7 mg/dL (8.5-10.1); Carbon Dioxide 28.2 meq/L (21.0-32.0); Phosphorus 1.7 mg/dL (2.5-4.9); Potassium 3.2 meq/L (3.5-5.1)
[2018-10-17 07:26] VITALS: O2SAT 98
[2018-10-17] MEDS ORDERED: Spironolactone 25 MG Tablet PO ONE (08:18)
[2018-10-17] MEDS: Senna/Docusate Sodium 8.6/50 MG Tablet PO SCH (08:59)
[2018-10-17] MEDS: amLODIPine 5 MG Tablet PO SCH (08:59)
[2018-10-17] MEDS: traZODone 100 MG Tablet PO SCH (08:59)
[2018-10-17] MEDS ORDERED: Potassium Phosphate Inj 15 MMOL in Sodium Chlor 0.9% Inj 150 ML IV.SIG ONE (09:00)
--- NOTE | 2018-10-17 09:17 | P.PNIM ---
Subjective Interval history: Patient says he is feeling all right. Denies any chest pain or shortness of breath. Physical Exam Vital signs: Vital Signs 10/16/18 10:56 10/16/18 11:00 10/16/18 12:36 Temperature 98.1 F Pulse Rate 61 61 70 Respiratory Rate 14 Blood Pressure 127/67 Pulse Oximetry 98 10/16/18 15:00 10/16/18 16:00 10/16/18 20:00 Temperature 98.6 F 97.6 F Pulse Rate 63 69 63 Respiratory Rate 18 19 Blood Pressure 157/68 H 155/69 H Pulse Oximetry 98 97 10/16/18 23:05 10/17/18 00:00 10/17/18 03:23 Temperature 98 F Pulse Rate 52 L 70 52 L Respiratory Rate 18 Blood Pressure 164/72 H Pulse Oximetry 98 10/17/18 03:40 10/17/18 07:25 10/17/18 08:45 Temperature 98.4 F 98.5 F Pulse Rate 66 69 63 Respiratory Rate 17 17 Blood Pressure 153/82 H 157/73 H Pulse Oximetry 99 98 Intake & Output 10/16/18 10/17/18 10/17/18 18:59 06:59 18:59 Intake Total 1480 / 1480 1240 / 1240 Output Total 625 / 625 975 / 975 Balance 855 / 855 265 / 265 Weight 78.8 kg Intake: IV 1000 / 1000 1000 / 1000 NS Inj 1,000 ML @ 100 mls/hr IV 1000 / 1000 1000 / 1000 .CONT .Q10H FORMERLY [facility], 1928–1983 Rx#:[id number] Oral 480 / 480 240 / 240 Output: Urine 450 / 450 Urine Amount (Catheter) 175 / 175 975 / 975 Indwelling Urethral Catheter 175 / 175 975 / 975 Narrative: GENERAL: Patient sitting up in bed. Appears comfortable. Pleasant, technically oriented x3, not times 4. SKIN: Warm and dry. HEAD: Normocephalic. EYES: No scleral icterus. No injection or drainage. NECK: Supple, trachea midline. No JVD. CARDIOVASCULAR: Regular rate and rhythm without murmurs, gallops, or rubs. RESPIRATORY: Breath sounds equal bilaterally. No accessory muscle use. GASTROINTESTINAL: Abdomen soft, non-tender, nondistended. MUSCULOSKELETAL: No cyanosis, or edema. BACK: Nontender without obvious deformity. No CVA tenderness. Urinary Catheter Management Indwelling Urethral Catheter: Cath placed during this visit: yes Reason for continuing: Acute urinary retention Insertion date: 10/15/18 Insertion time: 18:00 Results Labs CBC & Chem 7: 10/17/18 05:50 10/17/18 05:50 Labs: Microbiology 10/15/18 15:25 Catheterized Urine Urine Culture - Final No growth in 48 hours 10/15/18 15:11 Blood - Peripheral Aerobic Blood Culture - Preliminary No growth in 1 day 10/15/18 15:11 Blood - Peripheral Anaerobic Blood Culture - Preliminary No growth in 1 day 10/15/18 15:00 Blood - Peripheral Aerobic Blood Culture - Preliminary No growth in 1 day 10/15/18 15:00 Blood - Peripheral Anaerobic Blood Culture - Preliminary No growth in 1 day Assessment and Plan Plan Pleasantly confused 68 yo male, with PMH of DM, HTN, diabetic neuropathy presents with syncope, AMS //Syncope //Acute encephalopathy likely 2/2 to dehydration noted with acute MIGEL //Acute kidney injury with creatinine of 2.3 on admission //Diabetes mellitus //Diabetic neuropathy //Hypertension //History of alcoholism Hold Lasix, lisinopril and hydrochlorothiazide patient noted with acute kidney injury. Start IV fluids, monitor kidney function He is back at his baseline mentation Monitor electrolytes and replace Insulin sliding scale, Accu-Cheks Restarted home medications as appropriate = 10/16. Acute kidney injury improving. Creatinine 1.5 from 2.34 yesterday. BUN still elevated at 45. Continue with Thibodeaux. Continue to hold hydrochlorothiazide and lisinopril. Continue IV fluids. Potassium 3.3. Will monitor. = 10/17. Potassium 0.2. Replace. Patient can continue on spironolactone. Will add Flomax due to possible urinary retention. Will hold off on hydrochlorothiazide and lisinopril. Thibodeaux catheter will be removed. DVT prophylaxis heparin subq Disposition. Discharged to SNF.
--- NOTE | 2018-10-17 09:21 | P.DS ---
DS: Providers Date of admission: 10/15/18 18:14 Primary care physician: UNKNOWN Consults: 10/16/18 14:31 HUB Only Consult Order Routine Consulting Provider: Wally Lo 10/17/18 08:39 HUB Only Consult Order Routine Consulting Provider: Nikos Dickson,Agency Brief History from admission: Patient is a 68 year old male with PMH of DM, HTN was sent from SNF by EMS from his care home due to altered mental status. Per EMS patient was seen to fall out of his wheelchair at the care home today. Patient was noted altered on arrival, unable to provide any history. However he did wake up afterwards without any intervantion. The patient says he doesn't recall the events. He is tired and sleepy. He is more awake and alert he knows his full name date of and knows he is at [facility] he knows the year 2018 not oriented to month and date. The patient denies having any chest pain or shortness of breath. No cough fever or chills. He feels tired. No nausea or vomiting no abdominal pain, no urinary complaints. The patient is also a very poor historian. DS: Summary leasantly confused 68 yo male, with PMH of DM, HTN, diabetic neuropathy presents with syncope, AMS //Syncope //Acute encephalopathy likely 2/2 to dehydration noted with acute MIGEL //Acute kidney injury with creatinine of 2.3 on admission //Diabetes mellitus //Diabetic neuropathy //Hypertension //History of alcoholism Hold Lasix, lisinopril and hydrochlorothiazide patient noted with acute kidney injury. Start IV fluids, monitor kidney function He is back at his baseline mentation Monitor electrolytes and replace Insulin sliding scale, Accu-Cheks Restarted home medications as appropriate = 10/16. Acute kidney injury improving. Creatinine 1.5 from 2.34 yesterday. BUN still elevated at 45. Continue with Thibodeaux. Continue to hold hydrochlorothiazide and lisinopril. Continue IV fluids. Potassium 3.3. Will monitor. = 10/17. Potassium 0.2. Replace. Patient can continue on spironolactone. Will add Flomax due to possible urinary retention. Will hold off on hydrochlorothiazide and lisinopril. Thibodeaux catheter will be removed. DVT prophylaxis heparin subq Disposition. Discharged to SNF. Time Spent with Patient Total time spent providing and/or coordinating discharge services: Greater than 30 minutes Results Labs on day of discharge: Labs from last 24 hours 10/17/18 10/17/18 10/17/18 07:13 05:50 05:50 WBC 6.2 RBC 3.45 L Hgb 11.3 L D Hct 32.8 L MCV 95.0 MCH 32.7 MCHC 34.4 RDW 11.7 Plt Count 273 MPV 8.4 Neut % (Auto) 68.6 Lymph % (Auto) 17.0 Dade % (Auto) 12.5 H Eos % (Auto) 1.4 Baso % (Auto) 0.5 Neut # (Auto) 4.3 Lymph # (Auto) 1.1 Dade # (Auto) 0.8 Eos # (Auto) 0.1 Baso # (Auto) 0.0 WBC Differential . Differential Comment Auto diff final Sodium 141 Potassium 3.2 L Chloride 105 Carbon Dioxide 28.2 Anion Gap 8 BUN 33 H Creatinine 1.02 Estimated GFR 72 L POC Glucose 101 Random Glucose 88 Calcium 7.7 L Phosphorus 1.7 L Albumin 1.9 L 10/17/18 10/16/18 10/16/18 02:26 19:33 19:32 WBC RBC Hgb Hct MCV MCH MCHC RDW Plt Count MPV Neut % (Auto) Lymph % (Auto) Dade % (Auto) Eos % (Auto) Baso % (Auto) Neut # (Auto) Lymph # (Auto) Dade # (Auto) Eos # (Auto) Baso # (Auto) WBC Differential Differential Comment Sodium Potassium Chloride Carbon Dioxide Anion Gap BUN Creatinine Estimated GFR POC Glucose 101 249 H 246 H Random Glucose Calcium Phosphorus Albumin 10/16/18 11:22 WBC RBC Hgb Hct MCV MCH MCHC RDW Plt Count MPV Neut % (Auto) Lymph % (Auto) Dade % (Auto) Eos % (Auto) Baso % (Auto) Neut # (Auto) Lymph # (Auto) Dade # (Auto) Eos # (Auto) Baso # (Auto) WBC Differential Differential Comment Sodium Potassium Chloride Carbon Dioxide Anion Gap BUN Creatinine Estimated GFR POC Glucose 140 H Random Glucose Calcium Phosphorus Albumin Preliminary micro results at discharge 10/15/18 15:11 Aerobic Blood Culture - Preliminary Blood - Peripheral No growth in 1 day Anaerobic Blood Culture - Preliminary No growth in 1 day 10/15/18 15:00 Aerobic Blood Culture - Preliminary Blood - Peripheral No growth in 1 day Anaerobic Blood Culture - Preliminary No growth in 1 day Impressions ITS Impressions Chest X-Ray 10/15/18 15:18 CONCLUSION: No evidence of acute cardiopulmonary disease. Head CT 10/15/18 15:18 CONCLUSION: No acute intracranial abnormality. . . Discharge Plan Discharge Disposition Patient Disposition: 03 Discharge to SNF Discharge Condition Condition: Stable Discharge Order Discharge Orders: Discharge Order (Routine); Ordered 10/17/18 Ordered By: Nino Fournier Discharge Details Anticipated Discharge Date: 10/17/18 Discharge Comment: Patient will need repeat labs within 1 week Physicians Team Primary Care Provider: UNKNOWN, Attending Provider: Nino Fournier Other Providers: Wally Lo ; [facility],Agency Rxs /Orders / Referrals /Forms Prescriptions: Continue lovastatin 10 mg Tablet 10 mg PO DAILY RF: 0 trazodone 100 mg Tablet 100 mg PO DAILY RF: 0 glipizide-metformin 5-500 mg Tablet 1 tab PO BID RF: 0 pregabalin [Lyrica] 100 mg Capsule 100 mg PO BID RF: 0 amlodipine 5 mg tablet 5 mg PO DAILY Qty: 30 RF: 0 carvedilol [Coreg] 3.125 mg tablet 3.125 mg PO BID Qty: 60 RF: 0 thiamine HCl (vitamin B1) 100 mg Tablet 100 mg PO BID Qty: 60 RF: 0 insulin aspart U-100 [Novolog U-100 Insulin aspart] 100 unit/mL Solution 1 sliding scale dose SUBCUT TID RF: 0 Discontinued furosemide 20 mg Tablet 20 mg PO DAILY PRN (Reason: Edema) RF: 0 lisinopril 40 mg tablet 40 mg PO DAILY Qty: 30 RF: 0 hydrochlorothiazide 12.5 mg Capsule 12.5 mg PO DAILY Qty: 30 RF: 0 Referrals: UNKNOWN, [Primary Care Provider] - See Instructions Status ED Status: Left Department
[2018-10-17 12:35] VITALS: TEMP 98.6
[2018-10-17 16:48] VITALS: BP 141/68; RESP 19
[2018-10-17 16:51] VITALS: PULSE 54
== END 2018-10-17 18:06 | DRG 683 ==
LOC: NEPE 14:15 → NEDA 18:14 → NEDH 22:47 → HCIS 10-16 02:40
PROVIDERS: ADMIT Internal Medicine; ATTEND Internal Medicine
CPT/HCPCS: 51702; 70450; 71010; 71045; 80053; 80069; 80307; 81001; 82140; 82948; 82962; 83735; 84484; 85025; 85610; 85730; 87040; 87086; 90760; 93005; 96125; 96360; 97163; 97167; 97530; 99285; J1644; J1815; J7030